=== PATIENT | female | born 1930 | race Caucasian/White ===

== ENCOUNTER 2016-10-07 17:18 | Inpatient (IN) | payer OTHER ==
[~2016-10-07] VITALS: Ht 160 cm; Wt 48.1 kg
--- NOTE | ~2016-10-07 | HC ---
[facility] [place] [address] CONSULTATION Name: EFFIE JENKINS Room #: 311-P ADM IN M.R.#: [id number] Admission: 10/07/16 Attend Phys: Zafar Gillis MD Discharge: Date of : 29 Report #: [id number] THIS REPORT FOR: //name// CC: Kaitlin Gillis MD DATE OF SERVICE: 10/13/2016 REASON FOR CONSULTATION: Right medial calf hematoma/skin necrosis. HISTORY OF PRESENT ILLNESS: This is an 86-year-old female patient who was admitted to [facility] with palpitations, rapid heart rate, and nausea. The patient has a history of atrial fibrillation as well as congestive heart failure, hypertension, COPD, renal disease, and diabetes mellitus. She had been riding her scooter 2 Fridays ago (9 days ago) and ran into a cabinet with her right medial calf. She had some difficulty with bleeding, but has developed a hematoma since. She reports minimal pain associated with this today. PAST MEDICAL AND SURGICAL HISTORY: Significant for diabetes mellitus, hypertension, atrial fibrillation, cardiomyopathy, congestive heart failure, COPD, hypothyroidism, chronic renal insufficiency, and depression. The patient also has obstructive sleep apnea and a remote history of pulmonary embolism. She has undergone multiple back operations, lumbar fusion, left shoulder surgery, appendectomy, and right inguinal hernia repair. HOME MEDICATIONS: Include Lasix, Eliquis (held with last dose on 10/10/2016), diltiazem, Advair, Prevacid, Synthroid, Januvia, gabapentin, lisinopril, carvedilol, aspirin, folic acid, iron, Spiriva, and Mirapex. ALLERGIES: Include Sulfa Drugs, Fosamax , IODINE, LEVAQUIN, and PENICILLIN (PENICILLIN causes a rash). FAMILY HISTORY: Reviewed and noncontributory to this hospitalization. SOCIAL HISTORY: The patient denies any use of tobacco, alcohol, or illicit drugs. She is . REVIEW OF SYSTEMS: As per history of present illness. GENERAL: The patient denies unintentional weight loss. Denies fever or chills. HEENT: Denies changes in taste, vision, hearing, or smell. RESPIRATORY: Denies shortness of breath, has a history of COPD. CARDIOVASCULAR: Denies chest pain currently, has had palpitations. GASTROINTESTINAL: Denies nausea at this time. Denies bright red blood per rectum. GENITOURINARY: Denies dysuria, urgency, increased urinary frequency or [facility] [address] [place] [address] CONSULTATION Name: EFFIE JENKINS Room #: 311-P [facility] IN [facility]#: [id number] Admission: 10/07/16 Attend Phys: Zafar Gillis MD Discharge: Date of : 29 Report #: [id number] hematuria. MUSCULOSKELETAL: Denies myalgia. Complains of mild right medial calf pain, less today than at the time of her admission. NEUROLOGIC: Denies headaches, numbness, or tingling. PSYCHIATRIC: Denies anxiety or suicidal ideation. ENDOCRINE: Denies polydipsia, polyuria, heat or cold intolerance, has a history of diabetes mellitus. HEMATOLOGIC: Denies anemia, has easy bleeding and bruising while on Eliquis. All other review of systems is negative. PHYSICAL EXAMINATION: VITAL SIGNS: Temperature 36.5 degrees Celsius, blood pressure 116/69, pulse 89, respirations 28 to 32. GENERAL: This is an 86-year-old female patient in no acute distress. HEENT: Atraumatic, normocephalic with moist mucosal membranes. Oropharynx is clear. NECK: Supple, no appreciable lymphadenopathy. CHEST: Clear bilaterally. CARDIOVASCULAR: Regular rate and rhythm. ABDOMEN: Soft, nontender, nondistended with normoactive bowel tones. GENITOURINARY: Normal external female genitalia. EXTREMITIES: Her right medial calf shows a 12 cm long x 6 to 7 cm wide area of the right medial calf with skin necrosis and dark bloody drainage. There is no pus, no surrounding erythema or edema. Her leg is warm (normal temperature) and neurovascularly intact. NEUROLOGIC: Cranial nerves 2-12 grossly intact. PSYCHIATRIC: Normal mood and affect. SKIN AND INTEGUMENTARY: No acute inflammatory changes, rashes, or lesions are present other than that noted above. LABORATORY DATA: Most recent CBC is from 10/07/2016 with a white blood cell count of 8.9, hemoglobin 12.6, hematocrit 37.1, and platelets 165. Electrolytes most recently from 10/10/2016 show sodium 142, potassium 4.1, chloride 106, CO2 of 25, BUN 43, creatinine 1.5, glucose 92. Coagulation studies from 10/07/2016 show an INR of 1.8. RADIOLOGIC STUDIES: Chest x-ray from 10/11/2016, shows no significant improvement. There are persistent bilateral perihilar and left lower lung infiltrates and atelectasis, but no large pleural effusions or pneumothorax. IMPRESSION AND PLAN: This is an 86-year-old female patient with the above-listed comorbidities who sustained atraumatic right medial thigh hematoma. She now has overlying skin necrosis, but no evidence for sepsis. Her Eliquis has been held (being given for atrial fibrillation). The patient would benefit from excisional debridement. The [address] [place] [address] CONSULTATION Name: EFFIE JENKINS Room #: 311-P ADM IN M.R.#: [id number] Admission: 10/07/16 Attend Phys: Zafar Gillis MD Discharge: Date of : 29 Report #: [id number] benefits, and expectations of the procedure were discussed in detail with the patient. We will plan for excisional debridement tomorrow. I sincerely appreciate the opportunity to participate in the care of this patient and will leave further recommendations and orders in the electronic medical record as appropriate. <ELECTRONICALLY SIGNED> By: Dario Das MD, FACS 10/14/16 0845 1400 1751 Dario Das MD, FACS /nt
--- NOTE | ~2016-10-07 | HC ---
[facility] [place] [address] CONSULTATION Name: EFFIE JENKINS Room #: 311-P ADM IN M.R.#: [id number] Admission: 10/07/16 Attend Phys: Zafar Gillis MD Discharge: Date of : 29 Report #: [id number] THIS REPORT FOR: //name// CC: Kaitlin Gillis REASON FOR CONSULTATION: Atrial fibrillation. HISTORY OF PRESENT ILLNESS: The patient is an 86-year-old woman with a longstanding known severe nonischemic cardiomyopathy. Her history includes sleep apnea, chronic kidney disease, diabetes and permanent atrial fibrillation. She now presents with a 2-3 day history of nausea and poor oral intake. She denies abdominal pain, fevers or chills. There have been no recent changes to her medicines. She tells me that she is able to keep food down, although she just has had no appetite. In this setting, she felt her heart bleeding rapidly and irregularly. She was seen in the emergency department where she was found to be in atrial fibrillation, which is not a new rhythm abnormality for her. She was placed on intravenous Cardizem and admitted for further evaluation. Her admitting blood work was notable for markedly elevated liver function studies including an ALT of 4700, AST of 3600. She denies orthopnea or paroxysmal nocturnal dyspnea and no history of near-syncope or syncope. MEDICATIONS: Include Lasix 40 mg daily, Eliquis 2.5 mg twice daily, diltiazem CD 180 mg daily, Advair, Prevacid, Synthroid 75 mcg daily, Januvia 50 mg daily, gabapentin 100 mg at bedtime, lisinopril 2.5 mg daily, carvedilol 6.25 mg twice daily, aspirin 81 mg daily, folic acid, iron, Spiriva 1 capsule daily and Mirapex. ALLERGIES: Allergic to SULFA, FOSAMAX, IODINE, LEVAQUIN and PENICILLIN. PAST MEDICAL HISTORY: Medical records have been reviewed and include history of a nonischemic cardiomyopathy with an ejection fraction in the 25%-30% range, permanent atrial fibrillation, right inguinal hernia repair, obstructive sleep apnea, chronic kidney disease, remote pulmonary embolism, multiple prior back operations, lumbar fusion, left shoulder surgery and appendectomy. SOCIAL HISTORY: She has never been a smoker. . FAMILY HISTORY: Father at 81. Mother of pneumonia. REVIEW OF SYSTEMS: All systems negative except as that noted above. PHYSICAL EXAMINATION: GENERAL: This is a pleasant elderly woman, in no distress. VITAL SIGNS: Blood pressure is 98/55 and heart rate is 64 and irregular. She is afebrile, 5 feet 3 inches tall and 119 pounds. HEENT: There are neither xanthelasma, subcutaneous xanthomata, oral mucosal or [facility] [address] [place] [address] CONSULTATION Name: EFFIE JENKINS Room #: 311-P [facility] IN M.R.#: [id number] Admission: 10/07/16 Attend Phys: Zafar Gillis MD Discharge: Date of : 29 Report #: [id number] digital cyanosis or kyphoscoliosis present. CHEST: Clear to auscultation and percussion. CARDIOVASCULAR: An irregularly irregular rhythm with normal S1 and S2. ABDOMEN: Soft and nontender. EXTREMITIES: Without cyanosis, clubbing or edema. Radial pulses are 2+. NEUROLOGICAL: She is alert with a nonfocal exam. LABORATORY DATA: Sodium 141, potassium 4.6 and creatinine 1.4, which is at around her baseline. SGOT of 3612. Bilirubin 1.4. Troponin 0.54. Pro-BNP 51,000. White count 8.9, neutrophils 80% and hemoglobin 12.6. RADIOLOGICAL DATA: Chest x-ray demonstrates cardiomegaly and elevated left hemidiaphragm. EKG, atrial fibrillation, leftward axis and right bundle-branch block. IMPRESSION: 1. Permanent atrial fibrillation with elevated rates likely related to gastrointestinal process. 2. Chronic systolic heart failure. 3. Severe nonischemic cardiomyopathy. 4. Elevated liver function studies. 5. Chronic kidney disease. 6. Sleep apnea. 7. Diabetes type 2. 8. Hypercoagulable condition. RECOMMENDATIONS: 1. Resume oral Cardizem and carvedilol. 2. Continued anticoagulant therapy with apixaban. 3. GI evaluation. I suspect her atrial fibrillation rates her related to mild volume depletion and GI process. Thank you for asking me to participate in her care. <ELECTRONICALLY SIGNED> By: Ethan Hernandez MD, [facility] 10/10/16 1033 0741 0809 Ethan Hernandez MD, FAC /nt
--- NOTE | ~2016-10-07 | S ---
[facility] [place] [address] SURGICAL PATH RPT PROCEDURE Name: EFFIE JENKINS Room #: 311-P ADM IN M.R.#: [id number] Admission: 10/07/16 Date of : 29 Discharge: Report #: [id number] Path Case #: [id number] PATHOLOGY REPORT COLLECTION DATE: 10/14/2016 RECEIVED DATE: 10/14/2016 SUBMITTING PHYS: Dr. Raul Pleitez OTHER PHYS: Dr. Kaitlin Gillis SPECIMEN(S) RECEIVED: A.Right leg hematoma and skin * * * * * * * * * * * * FINAL DIAGNOSIS: Right leg hematoma and skin: - Elements of peripheral blood, consistent with a hematoma. - Non-viable skin showing gangrenous necrosis. (IUV:mgr; d/t: 10/15/16) PATHOLOGIST: Nayeli Olea M.D. REPORT ELECTRONICALLY SIGNED BY: Nayeli Olea M.D. DATE/TIME: 10/15/2016 16:29 * * * * * * * * * * * * GROSS PATHOLOGY: The specimen is received in formalin, labeled "Effie Jenkins-right leg hematoma and skin." Received is a 12.7 x 10.5 x 2.5 cm aggregate of dark red blood coagulum admixed with skin. [employer] Worker sections are submitted cassette A1. (TTL; 10/14/2016) CLINICAL HISTORY: Hematoma right medial calf INITIAL CPT CODE(S): A; 78116 Professional services performed by [facility] at [facility] [address] [place] [address] Technical services performed by [facility] at [address] [place] [id number]. [facility] [address] [place] [address] SURGICAL PATH RPT PROCEDURE Name: EFFIE JENKINS Room #: 311-P ADM IN M.R.#: [id number] Admission: 10/07/16 Date of : 29 Discharge: Report #: [id number] Path Case #: [id number] [address] PHONE: [phone] DIRECTOR: Omi Wolff M.D. * * * END OF REPORT * * *
--- NOTE | ~2016-10-07 | EKG ---
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: GINO : 1930 Requested By: Manuel Palmer Order Number: [id number] MD: Ethan Hernandez Measurements Intervals [employer] Rate: 97 P: ID: QRS: -87 QRSD: 160 T: 75 QT: 370 QTc: 470 Interpretive Statements Atrial fibrillation RBBB and LAFB Compared to ECG 09/16/2016 13:55:20 Left anterior fascicular block now present Right bundle-branch block now present Ventricular premature complex(es) no longer present Electronically Signed On 10-08-2016 9:01:14 OYSTER HARVESTER by Ethan Hernandez [email or web address] <ELECTRONICALLY SIGNED> By: Ethan Hernandez MD, [facility] 10/08/16 0901 1746 1746 Ethan Hernandez MD, [facility] /EPI
--- NOTE | ~2016-10-07 | H ---
[facility] [place] [address] HISTORY AND PHYSICAL Name: EFFIE JENKINS Room #: 311-P ADM IN M.R.#: [id number] Admission: 10/07/16 Attend Phys: Zafar Gillis MD Discharge: Date of : 29 Report #: [id number] THIS REPORT FOR: //name// CC: Kaitlin Gillis DATE OF SERVICE: 10/07/2016 CHIEF COMPLAINT: Palpitations, rapid heart rate, and nausea. HISTORY OF PRESENT ILLNESS: The patient is an 86-year-old female presented to the ER via ambulance with increasing heart rate and palpations. These symptoms started today. She also had some more shortness of air and some nausea. She has a history of prior AFib, congestive heart failure, hypertension, COPD, renal disease, diabetes mellitus. She denies any recent fevers or chills. PAST MEDICAL HISTORY: Includes as above: 1. Diabetes mellitus. 2. Hypertension. 3. AFib. 4. Cardiomyopathy. 5. CHF. 6. COPD. 7. Hypothyroidism. 8. Depression. 9. Recurrent UTIs. 10. Chronic renal insufficiency. 11. Constipation. 12. Prior ulcer. 13. Restless legs. MEDICATIONS: Lasix 40 mg a day, Eliquis 2.5 mg b.i.d., multivitamin daily, diltiazem 180 mg a day, tramadol 50 mg p.r.n., vitamin B12 daily, Advair 100/50 b.i.d., Prevacid 30 mg b.i.d., Xanax 0.25 mg p.r.n., Synthroid 75 mcg a day, Januvia 50 mg a day, gabapentin 100 mg at bedtime, lisinopril 2.5 mg a day, Coreg 6.25 b.i.d., aspirin 81 mg a day, potassium 20 mEq a day, [place] cream p.r.n., folic acid 1 mg daily, iron 325 mg a day, Spiriva 1 cap daily, Mirapex 0.5 mg at bedtime. ALLERGIES: SULFA, FOSAMAX, IODINE, LEVAQUIN, PENICILLIN. SOCIAL HISTORY: Nonsmoker. She does drink alcohol occasionally. No recreational drugs. REVIEW OF SYSTEMS: CONSTITUTIONAL: No fever or chills. [address] [address] HISTORY AND PHYSICAL Name: EFFIE JENKINS Room #: 311-P [facility] IN .R.#: [id number] Admission: 10/07/16 Attend Phys: Zafar Gillis MD Discharge: Date of : 29 Report #: [id number] HEENT: No headaches or visual changes. CHEST: Per above. No cough or sputum production. GASTROINTESTINAL: Per above. No diarrhea. GENITOURINARY: No burning or frequency. EXTREMITIES: No new joint pain. SKIN: No new rashes or wounds. NEUROLOGIC: No new numbness or weakness. PHYSICAL EXAMINATION: VITAL SIGNS: In the ER, blood pressure 175, initial pulse is 154, is now 88, respiratory rate 62 is now 28, and her O2 sat was 97%. GENERAL: She is currently awake and alert, in no acute distress. She is well nourished. Her mucous membranes are moist. NECK: Supple, without adenopathy, thyromegaly, or bruits. CHEST: Shows basilar crackles bilaterally. CARDIOVASCULAR: She currently has an irregular rhythm with a rate in the 80s, although it was in the 150s on presentation. ABDOMEN: Soft, no masses. Bowel sounds are active. EXTREMITIES: Showed no edema. Pulses were intact. NEUROLOGIC: Motor and sensory grossly intact bilaterally. DIAGNOSTIC DATA: EKG showed AFib with RVR. She was at 97 by the time the EKG was performed. There is no ST segment elevation. LABORATORY DATA: Sodium is 138, potassium is 6.7, chloride is 98, bicarbonate is 26, BUN is 36, creatinine is 1.6, glucose is 95, magnesium is 1.8. Total bili is 3.3, AST is 2217. ALT is 1708, alk phos 116. CPK 77, troponin is 0.17, BNP is 51,379, total protein 6.1, albumin 3.2. TSH is pending, INR 1.8. She is not on Coumadin. WBC is 8.9, hemoglobin 12.6, hematocrit 37.1, platelet count 165, 80 segs, 9 lymphs, 9 monos. Chest x-ray shows cardiomegaly, elevated left hemidiaphragm versus hernia. There is some improvement in the basal infiltrates from September of this year. ASSESSMENT: 1. Atrial fibrillation with rapid ventricular response: Rate control improved with IV Cardizem. Cardiology has been consulted. We will monitor the troponin. Dr. Wilson felt she was mildly dehydrated, we will give some fluids to help with that. 2. Elevated liver functions, maybe congestion from her heart failure, although elevated total bilirubin as well concerning for other processes. We will get an abdominal ultrasound and consult GI. Check an iron level and hepatitis panel. 3. Acute kidney injury with chronic kidney disease. 4. Hyperkalemia. She is getting hydrated. We will recheck that. 5. Chronic anemia, receives iron for that. [facility] [address] [place] [address] HISTORY AND PHYSICAL Name: EFFIE JENKINS Room #: 311-P ADM IN M.R.#: [id number] Admission: 10/07/16 Attend Phys: Zafar Gillis MD Discharge: Date of : 29 Report #: [id number] 6. Diabetes mellitus, we will hold her metformin, Januvia due to liver failure 7. Hypothyroidism, continue Synthroid. <ELECTRONICALLY SIGNED> By: Greg Mccann MD 10/14/16 1632 193 20 Greg Mccann MD /nt
--- NOTE | ~2016-10-07 | O ---
[facility] [place] [address] OPERATIVE REPORT Name: EFFIE JENKINS Room #: 311-P ADM IN M.R.#: [id number] Admission: 10/07/16 Attend Phys: Zafar Gillis MD Discharge: Date of : 29 Report #: [id number] THIS REPORT FOR: //name// CC: Kaitlin Gillis DATE OF SERVICE: 10/14/2016 PREOPERATIVE DIAGNOSIS: Hematoma of the soft tissues and necrosis of the overlying skin of the right medial calf comprising the area of 12 cm vertical x 8 cm width. POSTOPERATIVE DIAGNOSIS: Hematoma of the soft tissues and necrosis of the overlying skin of the right medial calf comprising the area of 12 cm vertical x 8 cm width. OPERATIVE PROCEDURE: Debridement and evacuation of hematoma, right lower extremity 8 x 12 cm in greatest dimensions. SURGEON: Raul Pleitez MD. EARLY CHILDHOOD ASSOCIATE: Destinee Barrera MS3. INDICATIONS: An 86-year-old lady that caught the right medial calf of her leg with her power aid transportation device between the kitchen refrigerator and the power rider approximately 1 week ago. She was currently on Eliquis and/or Coumadin for her AFib and previous PE. She developed significant soft tissue hematoma of the medial aspect of the right lower extremity, which requires debridement and evacuation. OPERATIVE PROCEDURE: The patient had thorough discussion of procedure, benefits and risks. She was brought to the operating suite and had satisfactory induction of moderate anesthetic care. After sterile draping of the right lower extremity was performed with Betadine solution, draping was completed, an appropriate timeout was then performed. The 8 x 12 cm blank necrotic skin of the medial aspect of the calf was completely disrupted. The margins had already begun to separate with just manipulation of the necrotic skin. All of this large eschar was excised and all of the underlying hematoma of approximately 100 mL was sent for histologic evaluation. Cleaning of the soft tissues and washing and dry debridement was then performed. When the hematoma had been evacuated, the underlying soft tissue was covered with saline ointment. Xeroform gauze was placed over the wound 4 x 4s followed by wrapping with Kerlix gauze and an Odell wrap was then performed. New blood loss was less than 1 mL. Old blood evacuated was approximately 100 mL. The patient tolerated procedure well with only local anesthetic and moderate anesthetic care. The patient returned [address] [address] OPERATIVE REPORT Name: EFFIE JENKINS Room #: 311-P [facility] IN ..#: [id number] Admission: 10/07/16 Attend Phys: Zafar Gillis MD Discharge: Date of : 29 Report #: [id number] directly to recovery room in stable and satisfactory condition. She will be followed by wound care. <ELECTRONICALLY SIGNED> By: Raul Pleitez MD, FACS 10/15/16 1129 1651 1728 Raul Pleitez MD, ERMELINDA /nt
--- NOTE | ~2016-10-07 | HC ---
[facility] [place] [address] CONSULTATION Name: EFFIE JENKINS Room #: 311-P ADM IN M.R.#: [id number] Admission: 10/07/16 Attend Phys: Zafar Gillis MD Discharge: Date of : 29 Report #: [id number] THIS REPORT FOR: //name// CC: Kaitlin Gillis DATE OF SERVICE: 10/13/2016 REASON FOR CONSULTATION: Traumatic hematoma of right leg. HISTORY OF PRESENT ILLNESS: The patient is a very pleasant 86-year-old woman who was admitted to [facility] through the Emergency Room on 10/07/2016 with atrial fibrillation and rapid ventricular response. The patient has diabetes. She is on Eliquis for her atrial fibrillation. Of note, the patient had accidentally struck her right leg on a freezer door approximately 9 or 10 days ago and Wound Care was consulted at this time due to a hematoma of her right lower leg, which is somewhat painful. During the course of her hospitalization, she has had her medical problems evaluated. At time of admission, she also had some shortness of breath, nausea and dry heaves which have resolved. Wound care was consulted for her hematoma. PAST MEDICAL HISTORY: 1. Atrial fibrillation. 2. Heart failure. 3. Hypertension. 4. COPD. 5. Chronic kidney disease. 6. Diabetes mellitus type 2. 7. Cardiomyopathy. PAST SURGICAL HISTORY: Hysterectomy, bilateral total knee replacement, bladder repair for prolapse, cataract surgery, right inguinal hernia repair, back surgery, trauma of left leg with healed wound. ALLERGIES: SULFA, IODINE, LEVAQUIN AND PENICILLINS. SOCIAL HISTORY: Note the patient's , Lobo Jenkins, is hospitalized now at the same time for venostasis ulceration of his leg and arterial sclerosis. MEDICATIONS: At home include Lasix, Eliquis 2.5 mg p.o. twice daily, multiple vitamins, diltiazem, tramadol, Prevacid, Xanax, Synthroid, Januvia, Neurontin, lisinopril, carvedilol, baby aspirin, potassium, folic acid, iron, Mirapex. REVIEW OF SYSTEMS: Noncontributory. [facility] [address] [place] [address] CONSULTATION Name: EFFIE JENKINS Room #: 311-P [facility] IN [facility].#: [id number] Admission: 10/07/16 Attend Phys: Zafar Gillis MD Discharge: Date of : 29 Report #: [id number] PHYSICAL EXAMINATION: GENERAL: Shows a thin elderly woman who is very lucid, alert, is a good historian. HEENT: Mucous membranes are moist. NECK: Supple. CHEST: Clear. HEART: Shows irregular rhythm. ABDOMEN: Soft. EXTREMITIES: Examination of the extremities shows old healed scars of the left lower extremity with some dark pigment changes. Dorsalis pedis pulse intact on the left. Examination of the right leg shows intact right dorsalis pedis pulse. There is a large approximately 10 cm long x 7 cm wide bulging hematoma of the right medial calf with the appearance of desiccated necrotic skin and underlying hematoma. This was somewhat tender to the touch. Minimal redness around the edges without overt cellulitis. IMPRESSION: Traumatic hematoma of right calf wound with atrial fibrillation, on Eliquis with overlying skin necrosis and underlying hematoma. PLAN: Xeroform dressing and a Kerlix wrap. Consult General Surgery, Dr. Dario Das, for consideration of operative debridement. Once skin and hematoma have been removed creating a concave wound and negative pressure wound therapy, the wound VAC would be optimal. Dr. Das had seen the patient. They will make surgical plan. <ELECTRONICALLY SIGNED> By: Arian Waller MD 10/15/16 1702 1354 1818 Arian Waller MD /nt
[~2016-10-07 17:18] MED LIST: ACCUNEB SO1.25 MG/1; ACCUNEB0.63 MG/3 IH; ADULT LOW DOSE81 MG PO; ADVAIR 100-501 EACH INH; ALBUTEROL INH INH; ALBUTEROL2.5 MG/31 INH; AMBIEN 5 MG TABL5 MG PO; APAP W/CODEINE1 TA2 PO; ASPIR 8181 MG; ASPIR 8181 MG PO; BENTYL 10 MG CA10 MG PO; BENZONATATE200 MG PO; CALCIUM 500 +1 EAC1 PO; CALCIUM 500 +1 EAC5 PO; CALCIUM 600 +1 EAC8 PO; CARDIZEM CD120 MG PO; CARVEDILOL12.5 MG PO; CARVEDILOL25 MG PO; CEFTIN500 MG PO; CLARITIN10 MG PO; COLOZAL PO; COREG PO; COREG25 MG PO; COREG6.25 MG PO; COZAAR 50 MG TA50 M1 PO; COZAAR 50 MG TA50 M2 PO; COZAAR 50 MG TA50 MG PO; DARVOCET-N 1001 EAC1 PO; DEPO-ESTRAD5 MG/1 ML IM; DIABETIC MED; DILTIAZEM 24HR120 M2 PO; DOXYCYCLINE 10100 MG PO; ELIQUIS2.5 MG PO; ENOXAPARIN30 MG/0.1 INJECTION; FLONASE 0.05%50 MCG NASAL; FOLIC ACID 1 MG1 MG PO; FOLIC ACID1 MG PO; GABAPENTIN 100100 MG PO; HYDROCODON-ACE1 EAC1 PO; HYDROCODONE-APA1 TA1 PO; IRON325 PO; JANUVIA25 MG PO; JANUVIA50 MG PO; LANSOPRAZOLE30 MG PO; LASIX 20 MG TAB20 MG PO; LASIX 40 MG TAB40 M2 PO; LEVOTHYROXIN0.075 MG PO; LEVOTHYROXIN0.088 MG PO; LEVOXYL50 MCG PO; LEVOXYL75 MCG PO; LEXAPRO20 MG PO; LISINOPRIL2.5 M1 PO; LISINOPRIL2.5 MG PO; LISINOPRIL5 MG PO; MAG-OXIDE400 MG PO; MAGNESIUM OXID400 MG PO; MAGNESIUM100 MG PO; MAGNESIUM250 M1 PO; MAGNESIUM500 MG PO; MILLIPRED DP5 M1 PO; MIRAPEX0.25 MG PO; MIRAPEX0.5 MG PO; MOBIC15 MG PO; MOM PO; MULTIVITAMINS PO; MYRBETRIQ25 MG PO; NASACORT; NASACORT AQ16.5 GM NASAL; NASACORT10.8 ML NS; NEXIUM40 MG PO; NORCO 5-325 TA1 EACH PO; NORCO 7.5-3251 EACH PO; NOVOPEN 31 EACH; ONDANSETRON2 MG/1 ML PO; OPIUM; OPIUM TINC10 MG/1 M1 PO; OPIUM10 MG/1 ML PO; PACERONE 200 M200 M1 PO; PERIACTIN PO; POTASSIUM20 PO; PREDNISONE 20 M20 MG PO; PREVACID 30MG C30 M1 PO; PREVACID PO; PREVACID30 MG PO; REQUIP 1 MG TABL1 M1 PO; SPIRIVA; SPIRIVA INH; SYMBICORT160 MCG/4. INH; TOVIAZ8 MG PO; TRADJENTA5 MG PO; TRAMADOL 50 MG50 MG PO; TRIAMCINOLONE A80 G2 TOP; TYLENOL325 MG PO; UNICOMPLEX M TA1 TA1 PO; VESICARE10 M1 PO; VICODIN 5-5001 EACH PO; VITAMIN B-12100 MC1 PO; VITAMIN B-12100 MCG PO; VITAMIN B-121000 MCG PO; VITAMIN B-12500 MCG PO; VITAMIN B-150 MG PO; VITAMIN B-6200 M1 PO; VITAMIN B3 PO; VITAMIN D400 UNI1 PO; XANAX 0.25 MG0.25 MG PO; [UNRECOGNIZED DRUG - OTHER] PO
[2016-10-07 17:21] VITALS: BP 100/75
[2016-10-07 17:49] LABS: ABSOLUTE NEUTROPHILS 7.2 thou/uL (1.4-8.2); BASOPHILS 0.6 % (0.0-2.0); HEMATOCRIT 37.1 % (37.0-47.0); HEMOGLOBIN 12.6 gm/dL (12.0-15.0); LYMPHOCYTES 9.4 % (24.0-44.0); MCH 28.2 pg (26.0-34.0); MCHC 33.9 % (28.0-37.0); MCV 83.2 fL (80.0-100.0); MONOCYTES 9.2 % (1.0-8.0); PLATELET COUNT 165 thou/uL (150-400); POLYS 80.8 % (36.0-66.0); RBC 4.46 mil/uL (4.20-5.00); RDW 16.9 % (10.5-14.5); WBC 8.9 thou/uL (4.0-11.0)
[2016-10-07 17:54] LABS: MANUAL DIFF NO
[2016-10-07 18:00] LABS: CALCIUM 9.5 mg/dL (8.5-10.1); CREATININE 1.6 mg/dL (0.6-1.3)
[2016-10-07 18:02] LABS: APTT 37.4 Seconds (24.5-32.8); INR 1.8; PROTIME 18.4 Seconds (9.3-11.4)
[2016-10-07 18:04] LABS: POTASSIUM 6.7 mmol/L (3.5-5.1)
[2016-10-07 18:14] LABS: TOTAL BILIRUBIN 3.3 mg/dL (<0.1-1.0)
[2016-10-07 18:15] LABS: ALBUMIN 3.2 g/dL (3.4-5.0); MAGNESIUM 1.8 mg/dL (1.8-2.4); TOTAL PROTEIN 6.1 g/dL (6.4-8.2); TROPONIN-I 0.17 ng/mL (<0.04-0.07)
[2016-10-07 20:07] VITALS: BP 90/48
[2016-10-07 20:15] VITALS: BP 104/53
[2016-10-07 20:45] VITALS: BP 85/46
[2016-10-07 21:04] LABS: CALCIUM 8.3 mg/dL (8.5-10.1); CREATININE 1.6 mg/dL (0.6-1.3)
[2016-10-07 21:05] LABS: POTASSIUM 5.6 mmol/L (3.5-5.1)
[2016-10-07 21:35] VITALS: BP 89/41
[2016-10-07 23:45] VITALS: BP 80/45
[2016-10-08] VITALS (8 sets, daily range): BP systolic 80–99; BP diastolic 43–57
[2016-10-08 00:10] LABS: % SATURATION 22 % (15-55); IRON 43 ug/dL (27-139); TIBC 192 ug/dL (250-450); UIBC 149 ug/dL (118-369)
[2016-10-08 06:31] LABS: ALBUMIN 2.4 g/dL (3.4-5.0); CREATININE 1.4 mg/dL (0.6-1.3); TOTAL BILIRUBIN 1.4 mg/dL (<0.1-1.0); TOTAL PROTEIN 4.6 g/dL (6.4-8.2)
[2016-10-08 06:32] LABS: POTASSIUM 4.6 mmol/L (3.5-5.1)
[2016-10-08 07:06] LABS: HEPATITIS C VIRUS AB 0.1 (0.0-0.9)
[2016-10-08 08:02] LABS: AMYLASE 46 U/L (25-115)
[2016-10-09 04:20] VITALS: BP 88/45
[2016-10-09 06:45] LABS: ALBUMIN 2.3 g/dL (3.4-5.0); DIRECT BILIRUBIN 0.7 mg/dL (<0.1-0.3); TOTAL BILIRUBIN 1.2 mg/dL (<0.1-1.0); TOTAL PROTEIN 4.4 g/dL (6.4-8.2)
[2016-10-09 08:37] VITALS: BP 89/53
[2016-10-09 13:21] VITALS: BP 76/38
[2016-10-09 15:41] VITALS: BP 72/37
[2016-10-09 20:33] VITALS: BP 69/37
[2016-10-09 20:35] VITALS: BP 70/38
[2016-10-09 21:08] LABS: HEP B SURFACE Ab(ANTI-HBS Non Reactive (())
[2016-10-10] VITALS: BP 78/39
[2016-10-10 06:36] LABS: CALCIUM 7.6 mg/dL (8.5-10.1); CREATININE 1.5 mg/dL (0.6-1.3); POTASSIUM 4.1 mmol/L (3.5-5.1)
[2016-10-10 07:40] VITALS: BP 82/46
[2016-10-10 11:55] VITALS: BP 95/55
[2016-10-10 15:35] LABS: ALBUMIN 2.4 g/dL (3.4-5.0); DIRECT BILIRUBIN 0.7 mg/dL (<0.1-0.3); TOTAL BILIRUBIN 1.1 mg/dL (<0.1-1.0); TOTAL PROTEIN 4.8 g/dL (6.4-8.2)
[2016-10-10 16:20] VITALS: BP 93/52
[2016-10-10 21:35] VITALS: BP 98/55
[2016-10-11 04:35] VITALS: BP 93/53
[2016-10-11 07:17] LABS: ALBUMIN 2.3 g/dL (3.4-5.0); DIRECT BILIRUBIN 0.6 mg/dL (<0.1-0.3); TOTAL BILIRUBIN 1.2 mg/dL (<0.1-1.0); TOTAL PROTEIN 4.3 g/dL (6.4-8.2)
[2016-10-11 12:50] VITALS: BP 100/48
[2016-10-11 17:40] VITALS: BP 105/58
[2016-10-11 21:45] VITALS: BP 103/71
[2016-10-12 04:36] LABS: ALBUMIN 2.3 g/dL (3.4-5.0); DIRECT BILIRUBIN 0.5 mg/dL (<0.1-0.3); TOTAL BILIRUBIN 1.1 mg/dL (<0.1-1.0); TOTAL PROTEIN 4.8 g/dL (6.4-8.2)
[2016-10-12 05:25] VITALS: BP 101/66
[2016-10-12 07:15] VITALS: BP 123/65
[2016-10-12 12:10] VITALS: BP 112/66
[2016-10-12 16:00] VITALS: BP 98/54
[2016-10-13 08:00] VITALS: BP 111/69
[2016-10-13 14:52] LABS: HEMATOCRIT 37.8 % (37.0-47.0); HEMOGLOBIN 12.4 gm/dL (12.0-15.0); MCH 27.8 pg (26.0-34.0); MCHC 32.7 % (28.0-37.0); MCV 85.1 fL (80.0-100.0); PLATELET COUNT 252 thou/uL (150-400); RBC 4.45 mil/uL (4.20-5.00); RDW 18.4 % (10.5-14.5); WBC 7.8 thou/uL (4.0-11.0)
[2016-10-13 14:54] LABS: MANUAL DIFF YES
[2016-10-13 15:15] LABS: ALBUMIN 2.5 g/dL (3.4-5.0); CALCIUM 8.3 mg/dL (8.5-10.1); CREATININE 0.9 mg/dL (0.6-1.3); POTASSIUM 4.5 mmol/L (3.5-5.1); TOTAL BILIRUBIN 1.1 mg/dL (<0.1-1.0); TOTAL PROTEIN 5.4 g/dL (6.4-8.2)
[2016-10-13 15:36] LABS: ABSOLUTE NEUTROPHILS 5.6 thou/uL (1.4-8.2); ANISOCYTOSIS 1+; TOTAL CELL COUNT 100
[2016-10-13 17:40] VITALS: BP 93/76
[2016-10-13 20:00] VITALS: BP 100/61
[2016-10-14 04:20] VITALS: BP 101/54
[2016-10-14 08:12] VITALS: BP 110/70
[2016-10-14 10:06] VITALS: BP 102/65
[2016-10-14 10:21] LABS: INR 1.4; PROTIME 14.9 Seconds (9.3-11.4)
[2016-10-14 14:25] VITALS: BP 109/66
[2016-10-14 17:17] VITALS: BP 111/70
[2016-10-14 20:32] VITALS: BP 94/54
[2016-10-15 07:03] LABS: ALBUMIN 2.5 g/dL (3.4-5.0); DIRECT BILIRUBIN 0.4 mg/dL (<0.1-0.3); TOTAL BILIRUBIN 1.1 mg/dL (<0.1-1.0); TOTAL PROTEIN 5.2 g/dL (6.4-8.2)
[2016-10-15 08:00] VITALS: BP 107/67
[2016-10-15 12:00] VITALS: BP 95/69
[2016-10-15] MEDS ORDERED: VITAMIN B-12500 MCG PO (12:13)
[2016-10-15] MEDS ORDERED: MULTIVITAMINS PO (12:13)
[2016-10-15] MEDS ORDERED: FOLIC ACID 1 MG1 MG PO (12:13)
[2016-10-15] MEDS ORDERED: CARDIZEM CD 18180 M3 PO (12:13)
[2016-10-15] MEDS ORDERED: JANUVIA50 MG PO (12:13)
[2016-10-15] MEDS ORDERED: ALPRAZOLAM 0.0.25 M1 PO (12:40)
[2016-10-15] MEDS ORDERED: TRAMADOL 50 MG50 MG PO (12:40)
[2016-10-15 16:00] VITALS: BP 94/69
== END 2016-10-15 17:23 | DRG 853 ==
LOC: ER 17:18 → EROBS 19:12 → 3N 19:12
PROVIDERS: Emergency Medicine; Family Medicine; Hospitalist; Internal Medicine; Internal Medicine Gastroenterology; Nurse Practitioner Adult Health; Nurse Practitioner Family; Specialist; Surgery
PROC: 0JBN0ZZ Excision of Right Lower Leg Subcutaneous Tissue and Fascia, Open Approach (ICD-10-PCS; principal; 2016-10-14)
DX: A41.9 Sepsis, unspecified organism (principal); K72.00 Acute and subacute hepatic failure without coma; J15.6 Pneumonia due to other Gram-negative bacteria; N17.9 Acute kidney failure, unspecified; D68.59 Other primary thrombophilia; I13.0 Hypertensive heart and chronic kidney disease with heart failure and stage 1 through stage 4 chronic kidney disease, or unspecified chronic kidney disease; I50.22 Chronic systolic (congestive) heart failure; I42.0 Dilated cardiomyopathy; N39.0 Urinary tract infection, site not specified; K72.90 Hepatic failure, unspecified without coma; Z96.653 Presence of artificial knee joint, bilateral; E03.9 Hypothyroidism, unspecified; F32.9 Major depressive disorder, single episode, unspecified; J44.9 Chronic obstructive pulmonary disease, unspecified; G25.81 Restless legs syndrome; K59.00 Constipation, unspecified; E87.5 Hyperkalemia; I48.2 Chronic atrial fibrillation; G47.33 Obstructive sleep apnea (adult) (pediatric); S80.12XA Contusion of left lower leg, initial encounter; F03.90 Unspecified dementia, unspecified severity, without behavioral disturbance, psychotic disturbance, mood disturbance, and anxiety; E11.22 Type 2 diabetes mellitus with diabetic chronic kidney disease; N18.2 Chronic kidney disease, stage 2 (mild); D63.8 Anemia in other chronic diseases classified elsewhere; E86.0 Dehydration; S89.90XA Unspecified injury of unspecified lower leg, initial encounter; X58.XXXA Exposure to other specified factors, initial encounter; Z88.0 Allergy status to penicillin; Z88.1 Allergy status to other antibiotic agents; Z90.710 Acquired absence of both cervix and uterus; Z98.42 Cataract extraction status, left eye; Z98.41 Cataract extraction status, right eye; Z88.2 Allergy status to sulfonamides; Z79.82 Long term (current) use of aspirin; Z79.899 Other long term (current) drug therapy; Z90.49 Acquired absence of other specified parts of digestive tract; Z91.041 Radiographic dye allergy status; Z86.711 Personal history of pulmonary embolism; Z98.890 Other specified postprocedural states; Y93.89 Activity, other specified; Y92.89 Other specified places as the place of occurrence of the external cause; Y99.8 Other external cause status
CPT/HCPCS: 10096; 50010; 50101; 50386; 57091; 62110; 62850; 70005

== ENCOUNTER → 2016-10-22 | Outpatient (CLI) | payer OTHER ==
[~2016-10-22] MED LIST changes: +ALPRAZOLAM 0.0.25 M1 PO; +CARDIZEM CD 18180 M3 PO
== END ==
LOC: HYPER 06:56
DX: E11.622 Type 2 diabetes mellitus with other skin ulcer (principal); L97.211 Non-pressure chronic ulcer of right calf limited to breakdown of skin; I48.91 Unspecified atrial fibrillation; J44.9 Chronic obstructive pulmonary disease, unspecified; E11.22 Type 2 diabetes mellitus with diabetic chronic kidney disease; N18.3 Chronic kidney disease, stage 3 (moderate); I50.9 Heart failure, unspecified; Z90.710 Acquired absence of both cervix and uterus

== ENCOUNTER → 2016-10-29 | Outpatient (CLI) | payer OTHER | LOC: HYPER 06:52 | DX: T81.89XD Other complications of procedures, not elsewhere classified, subsequent encounter (principal); E11.622 Type 2 diabetes mellitus with other skin ulcer; E11.22 Type 2 diabetes mellitus with diabetic chronic kidney disease; N18.3 Chronic kidney disease, stage 3 (moderate); I48.91 Unspecified atrial fibrillation; J44.9 Chronic obstructive pulmonary disease, unspecified; L97.821 Non-pressure chronic ulcer of other part of left lower leg limited to breakdown of skin; Z90.710 Acquired absence of both cervix and uterus; Y83.8 Other surgical procedures as the cause of abnormal reaction of the patient, or of later complication, without mention of misadventure at the time of the procedure ==

== ENCOUNTER → 2016-12-31 | Outpatient (CLI) | payer OTHER | LOC: HYPER 07:07 | DX: T81.89XD Other complications of procedures, not elsewhere classified, subsequent encounter (principal); S81.801D Unspecified open wound, right lower leg, subsequent encounter; L89.101 Pressure ulcer of unspecified part of back, stage 1; E11.22 Type 2 diabetes mellitus with diabetic chronic kidney disease; I13.0 Hypertensive heart and chronic kidney disease with heart failure and stage 1 through stage 4 chronic kidney disease, or unspecified chronic kidney disease; N18.3 Chronic kidney disease, stage 3 (moderate); I50.9 Heart failure, unspecified; I48.91 Unspecified atrial fibrillation; J44.9 Chronic obstructive pulmonary disease, unspecified; Y83.8 Other surgical procedures as the cause of abnormal reaction of the patient, or of later complication, without mention of misadventure at the time of the procedure ==

== ENCOUNTER → 2017-01-07 | Outpatient (CLI) | payer OTHER | LOC: HYPER 07:01 | DX: T81.89XA Other complications of procedures, not elsewhere classified, initial encounter (principal); S81.801A Unspecified open wound, right lower leg, initial encounter; S80.11XA Contusion of right lower leg, initial encounter; E11.22 Type 2 diabetes mellitus with diabetic chronic kidney disease; N18.3 Chronic kidney disease, stage 3 (moderate); E11.69 Type 2 diabetes mellitus with other specified complication; I48.91 Unspecified atrial fibrillation; I50.9 Heart failure, unspecified; J44.9 Chronic obstructive pulmonary disease, unspecified; Y83.8 Other surgical procedures as the cause of abnormal reaction of the patient, or of later complication, without mention of misadventure at the time of the procedure ==

== ENCOUNTER → 2017-01-14 | Outpatient (CLI) | payer OTHER | LOC: HYPER 07:07 | DX: T81.89XA Other complications of procedures, not elsewhere classified, initial encounter (principal); S81.801D Unspecified open wound, right lower leg, subsequent encounter; E11.69 Type 2 diabetes mellitus with other specified complication; Z48.817 Encounter for surgical aftercare following surgery on the skin and subcutaneous tissue; E11.22 Type 2 diabetes mellitus with diabetic chronic kidney disease; N18.3 Chronic kidney disease, stage 3 (moderate); I50.9 Heart failure, unspecified; I48.91 Unspecified atrial fibrillation; J44.9 Chronic obstructive pulmonary disease, unspecified; Y83.8 Other surgical procedures as the cause of abnormal reaction of the patient, or of later complication, without mention of misadventure at the time of the procedure ==

== ENCOUNTER → 2017-01-28 | Outpatient (CLI) | payer OTHER | LOC: HYPER 07:14 | DX: T81.89XD Other complications of procedures, not elsewhere classified, subsequent encounter (principal); E11.69 Type 2 diabetes mellitus with other specified complication; Z48.817 Encounter for surgical aftercare following surgery on the skin and subcutaneous tissue; I48.91 Unspecified atrial fibrillation; E11.22 Type 2 diabetes mellitus with diabetic chronic kidney disease; N18.9 Chronic kidney disease, unspecified; I50.20 Unspecified systolic (congestive) heart failure; J44.9 Chronic obstructive pulmonary disease, unspecified; Y83.8 Other surgical procedures as the cause of abnormal reaction of the patient, or of later complication, without mention of misadventure at the time of the procedure ==

== ENCOUNTER → 2017-02-04 | Outpatient (CLI) | payer OTHER | LOC: HYPER 07:10 | DX: T81.89XD Other complications of procedures, not elsewhere classified, subsequent encounter (principal); S81.801D Unspecified open wound, right lower leg, subsequent encounter; I48.91 Unspecified atrial fibrillation; E11.22 Type 2 diabetes mellitus with diabetic chronic kidney disease; N18.3 Chronic kidney disease, stage 3 (moderate); F15.90 Other stimulant use, unspecified, uncomplicated; J44.9 Chronic obstructive pulmonary disease, unspecified; Z48.817 Encounter for surgical aftercare following surgery on the skin and subcutaneous tissue; Y83.8 Other surgical procedures as the cause of abnormal reaction of the patient, or of later complication, without mention of misadventure at the time of the procedure ==

== ENCOUNTER → 2017-02-11 | Outpatient (CLI) | payer OTHER | LOC: HYPER 07:06 | DX: T81.89XA Other complications of procedures, not elsewhere classified, initial encounter (principal); S81.801D Unspecified open wound, right lower leg, subsequent encounter; E11.22 Type 2 diabetes mellitus with diabetic chronic kidney disease; N18.3 Chronic kidney disease, stage 3 (moderate); I48.91 Unspecified atrial fibrillation; I50.9 Heart failure, unspecified; J44.9 Chronic obstructive pulmonary disease, unspecified; F15.90 Other stimulant use, unspecified, uncomplicated; Z48.817 Encounter for surgical aftercare following surgery on the skin and subcutaneous tissue; Y83.8 Other surgical procedures as the cause of abnormal reaction of the patient, or of later complication, without mention of misadventure at the time of the procedure ==

== ENCOUNTER → 2017-02-18 | Outpatient (CLI) | payer OTHER | LOC: HYPER 06:54 | DX: T81.89XA Other complications of procedures, not elsewhere classified, initial encounter (principal); S81.801D Unspecified open wound, right lower leg, subsequent encounter; E11.22 Type 2 diabetes mellitus with diabetic chronic kidney disease; N18.3 Chronic kidney disease, stage 3 (moderate); I50.9 Heart failure, unspecified; I48.91 Unspecified atrial fibrillation; J44.9 Chronic obstructive pulmonary disease, unspecified; Z48.817 Encounter for surgical aftercare following surgery on the skin and subcutaneous tissue; W22.8XXD Striking against or struck by other objects, subsequent encounter; Y83.8 Other surgical procedures as the cause of abnormal reaction of the patient, or of later complication, without mention of misadventure at the time of the procedure ==

== ENCOUNTER → 2017-03-04 | Outpatient (CLI) | payer OTHER | LOC: HYPER 07:39 | DX: T81.89XD Other complications of procedures, not elsewhere classified, subsequent encounter (principal); E11.22 Type 2 diabetes mellitus with diabetic chronic kidney disease; N18.3 Chronic kidney disease, stage 3 (moderate); I48.91 Unspecified atrial fibrillation; J44.9 Chronic obstructive pulmonary disease, unspecified; Y83.8 Other surgical procedures as the cause of abnormal reaction of the patient, or of later complication, without mention of misadventure at the time of the procedure ==

== ENCOUNTER → 2017-03-18 | Outpatient (CLI) | payer OTHER | LOC: HYPER 07:17 | DX: T81.89XD Other complications of procedures, not elsewhere classified, subsequent encounter (principal); E11.22 Type 2 diabetes mellitus with diabetic chronic kidney disease; N18.3 Chronic kidney disease, stage 3 (moderate); I50.9 Heart failure, unspecified; J44.9 Chronic obstructive pulmonary disease, unspecified; I48.91 Unspecified atrial fibrillation; Z48.817 Encounter for surgical aftercare following surgery on the skin and subcutaneous tissue; Y83.8 Other surgical procedures as the cause of abnormal reaction of the patient, or of later complication, without mention of misadventure at the time of the procedure ==

== ENCOUNTER → 2017-04-01 | Outpatient (CLI) | payer OTHER | LOC: HYPER 07:08 | DX: T81.89XD Other complications of procedures, not elsewhere classified, subsequent encounter (principal); S81.801D Unspecified open wound, right lower leg, subsequent encounter; E11.22 Type 2 diabetes mellitus with diabetic chronic kidney disease; N18.3 Chronic kidney disease, stage 3 (moderate); I48.91 Unspecified atrial fibrillation; I50.9 Heart failure, unspecified; J44.9 Chronic obstructive pulmonary disease, unspecified; Z48.817 Encounter for surgical aftercare following surgery on the skin and subcutaneous tissue; Y83.8 Other surgical procedures as the cause of abnormal reaction of the patient, or of later complication, without mention of misadventure at the time of the procedure ==

== ENCOUNTER → 2017-04-14 | Outpatient (CLI) | payer OTHER ==
[~2017-04-14] VITALS: Ht 160 cm; Wt 57.2 kg
[~2017-04-14] MED LIST changes: +ACETAMINOPHEN-1 EAC1 PO; +JANUVIA 50 MG T50 M1 PO
[2017-04-14 12:56] VITALS: BP 113/56
== END | disposition home or self-care (01) ==
LOC: PAIN 06:45
DX: M19.012 Primary osteoarthritis, left shoulder (principal); M19.011 Primary osteoarthritis, right shoulder

== ENCOUNTER → 2017-04-15 | Outpatient (CLI) | payer OTHER | LOC: HYPER 07:15 | DX: T81.89XD Other complications of procedures, not elsewhere classified, subsequent encounter (principal); I48.91 Unspecified atrial fibrillation; E11.22 Type 2 diabetes mellitus with diabetic chronic kidney disease; N18.3 Chronic kidney disease, stage 3 (moderate); I50.9 Heart failure, unspecified; J44.9 Chronic obstructive pulmonary disease, unspecified; Z90.710 Acquired absence of both cervix and uterus; Y83.8 Other surgical procedures as the cause of abnormal reaction of the patient, or of later complication, without mention of misadventure at the time of the procedure ==

== ENCOUNTER → 2017-05-06 | Outpatient (CLI) | payer OTHER | LOC: HYPER 07:01 | DX: T81.89XD Other complications of procedures, not elsewhere classified, subsequent encounter (principal); E11.22 Type 2 diabetes mellitus with diabetic chronic kidney disease; N18.3 Chronic kidney disease, stage 3 (moderate); I50.9 Heart failure, unspecified; J44.9 Chronic obstructive pulmonary disease, unspecified; I48.91 Unspecified atrial fibrillation; Z90.710 Acquired absence of both cervix and uterus; Y83.8 Other surgical procedures as the cause of abnormal reaction of the patient, or of later complication, without mention of misadventure at the time of the procedure ==

== ENCOUNTER 2017-10-29 07:45 | Inpatient (IN) | payer OTHER ==
[~2017-10-29] VITALS: Ht 160 cm; Wt 60.8 kg
--- NOTE | ~2017-10-29 | EKG ---
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 : 1930 Requested By: Rodriguez Sood Order Number: [id number] MD: Ethan Hernandez Measurements Intervals [place] Rate: 83 P: MT: QRS: -82 QRSD: 158 T: 93 QT: 462 QTc: 543 Interpretive Statements Atrial fibrillation Ventricular premature complex RBBB and LAFB LVH with secondary repolarization abnormality Compared to ECG 10/07/2016 17:46:06 Ventricular premature complex(es) now present Electronically Signed On 10-29-2017 16:03:15 ASSISTANT CHIEF NURSING OFFICER by Ethan Hernandez [email or web address] <ELECTRONICALLY SIGNED> By: Ethan Hernandez MD, [facility] 10/29/17 1603 08 0800 Ethan Hernandez MD, [facility] /EPI
--- NOTE | ~2017-10-29 | EKG ---
[address] [place] [address] ELECTROCARDIOGRAM REPORT Name: EFFIE JENKINS Room #: 429-P ADM IN M.R.#: [id number] Admission: 10/29/17 Attend Phys: Zafar Gillis MD Discharge: Date of : 29 Report #: [id number] THIS REPORT FOR: //name// [facility] Test Date: 2017-10-30 Test Time: 07:59:20 Pat Name: EFFIE JENKINS Department: Room: 429 Gender: F Chemical Dependency Counselor: LUC : 1930 Requested By: Zafar Gillis Order Number: [id number] MD: Ethan Hernandez Measurements Intervals [place] Rate: 134 P: RI: QRS: -81 QRSD: 148 T: 93 QT: 341 QTc: 509 Interpretive Statements Atrial fibrillation Ventricular premature complex RBBB and LAFB Compared to ECG 10/29/2017 08:00:44 No significant changes Electronically Signed On 10-30-2017 8:49:00 DIVISION MERCHANDISE MANAGER by Ethan Hernandez [email or web address] <ELECTRONICALLY SIGNED> By: Ethan Hernandez MD, [facility] 10/30/17 [phone] 0759 Ethan Hernandez MD, [facility] /EPI
--- NOTE | ~2017-10-29 | 2DMMODE ---
[facility] [address] [place] [address] 2 D/M-MODE ECHOCARDIOGRAM Name: EFFIE JENKINS Room #: 170-6 ADM IN .R.#: [id number] Admission: 10/29/17 Attend Phys: Zafar Gillis MD Discharge: Date of : 29 Date of Service: 10/29/17 1422 Report #: [id number] THIS REPORT FOR: //name// APPROVED REPORT Study performed: 10/29/2017 12:38:27 EXAM: Comprehensive 2D, Doppler, and color-flow Echocardiogram Patient Location: ER Room #: 6 Status: routine BSA: 1.64 HR: 78 bpm BP: 132/59 mmHg Rhythm: Irregular Other Information Study Quality: Good Indications Non-ischemic cardiomyopathy. CHF, HTN, Afib. COPD. 2D Dimensions RVDd: 41.57 mm LVEF(%): 23.05 (>50%) IVSd: 11.86 (7-11mm) LVOT Diam: 22.82 (18-24mm) LVDd: 61.71 mm PWd: 10.52 (7-11mm) LVDs: 55.04 (25-40mm) Aortic Root: 35.02 mm Malik's LVEF: 23.05 % Volumes Left Atrial Volume (Systole) Single Plane 4CH: 107.26 mL Single Plane 2CH: 139.42 mL LA ESV Index: 83.00 mL/m2 Aortic Valve AoV Peak Colt.: 1.60 m/s AO Peak Gr.: 11.85 mmHg LVOT Max P.82 mmHg LVOT Max V: 0.67 m/s EPHRAIM Vmax: 1.72 cm2 Mitral Valve E/A Ratio: 2.4 MV Decel. Time: 134.35 ms [facility] [address] [place] [address] 2 D/M-MODE ECHOCARDIOGRAM Name: EFFIE JENKINS Room #: 170-6 ADM IN M.R.#: [id number] Admission: 10/29/17 Attend Phys: Zafar Gillis MD Discharge: Date of : 29 Date of Service: 10/29/17 1422 Report #: [id number] Max Colt.: 1.72 m/s MV A Colt.: 0.71 m/s MV PHT: 38.96 ms IVRT: 69.20 ms Pulmonary Valve PV Peak Colt.: 0.66 m/s PV Peak Gr.: 1.78 mmHg Tricuspid Valve TR Peak Colt.: 3.78 m/s RAP Estimate: 10.00 mmHg TR Peak Gr.: 57.27 mmHg PA Pressure: 67.00 mmHg Left Ventricle Left ventricle is mild to moderately dilated. There is normal left ventricular wall thickness. Left ventricular systolic function is severely decreased. LVEF is 20-25%. Severe diastolic dysfunction is present (restrictive filling). Right Ventricle Right ventricle is mildly dilated. Right ventricle is mildly hypokinetic. Atria Left atrium is severely dilated. Right atrium is mildly dilated. Aortic Valve Aortic valve is moderately calcified. Mild aortic regurgitation. Mild aortic stenosis. EPHRAIM by continuity equation is 1.7cm2. Mitral Valve Mitral valve leaflets are moderately thickened. Moderate mitral annular calcification. Moderate to severe mitral regurgitation No evidence of mitral valve stenosis. Tricuspid Valve The tricuspid valve is normal in structure. Mild to moderate tricuspid regurgitation. Estimated PAP is 65-70mmHg. Pulmonic Valve The pulmonary valve is normal in structure. Mild pulmonic regurgitation. Great Vessels The aortic root is normal in size. Ascending [place] [address] 2 D/M-MODE ECHOCARDIOGRAM Name: EFFIE JENKINS Room #: 170-6 ADM IN M.R.#: [id number] Admission: 10/29/17 Attend Phys: Zafar Gillis MD Discharge: Date of : 29 Date of Service: 10/29/17 1422 Report #: [id number] visualized. IVC is normal in size and collapses <50% with inspiration. Pericardium There is no pericardial effusion. <Conclusion> Left ventricle is mild to moderately dilated. Left ventricular systolic function is severely decreased. Right ventricle is mildly dilated. Right ventricle is mildly hypokinetic. Left atrium is severely dilated. Right atrium is mildly dilated. Aortic valve is moderately calcified. Mild aortic regurgitation. Mild aortic stenosis. EPHRAIM by continuity equation is 1.7cm2. Mitral valve leaflets are moderately thickened. Moderate mitral annular calcification. Moderate to severe mitral regurgitation The tricuspid valve is normal in structure. Mild to moderate tricuspid regurgitation. Estimated PAP is 65-70mmHg. The pulmonary valve is normal in structure. Mild pulmonic regurgitation. There is no pericardial effusion. <ELECTRONICALLY SIGNED> By: Yang Moura MD 10/29/17 1422 142 142 Yang Moura MD /INF
[2017-10-29 07:47] VITALS: BP 132/59
[2017-10-29] MEDS ORDERED: CARDIZEM CD180 MG PO (08:02)
[2017-10-29 08:08] LABS: HEMATOCRIT 39.9 % (37.0-47.0); HEMOGLOBIN 13.5 gm/dL (12.0-15.0); MCH 30.2 pg (26.0-34.0); MCV 89.1 fL (80.0-100.0); RBC 4.48 mil/uL (4.20-5.00); RDW 14.7 % (10.5-14.5); WBC 10.4 thou/uL (4.0-11.0)
[2017-10-29 08:22] LABS: APTT 36.4 Seconds (24.5-32.8); INR 1.4
[2017-10-29 08:23] LABS: CALCIUM 8.9 mg/dL (8.5-10.1); CREATININE 1.5 mg/dL (0.6-1.0)
[2017-10-29] MEDS ORDERED: REMERON15 MG PO (08:23)
[2017-10-29] MEDS ORDERED: TRAZODONE HCL50 MG PO (08:24)
[2017-10-29] MEDS ORDERED: BENADRYL25 MG PO (08:25)
[2017-10-29] MEDS ORDERED: ADVAIR HFA 230M12 GM INH (08:30)
[2017-10-29 08:31] LABS: ALBUMIN 3.4 g/dL (3.4-5.0); TOTAL BILIRUBIN 1.2 mg/dL (<0.1-1.0); TOTAL PROTEIN 6.3 g/dL (6.4-8.2); TROPONIN-I 0.11 ng/mL (<0.06)
[2017-10-29] MEDS ORDERED: EPIPEN0.3 MG/0.1 IM (08:31)
[2017-10-29] MEDS ORDERED: MIRALAX17 GM PO (08:32)
[2017-10-29] MEDS ORDERED: ONDANSETRON HCL4 M2 PO (08:32)
[2017-10-29 08:44] LABS: URINE BILIRUBIN NEGATIVE (Negative); URINE BLOOD TRACE (Negative); URINE CLARITY CLEAR; URINE COLOR YELLOW; URINE GLUCOSE-RANDOM* NEGATIVE (Negative); URINE KETONES NEGATIVE (Negative); URINE LEUKOCYTES-REFLEX NEGATIVE (Negative); URINE NITRITE-REFLEX NEGATIVE (Negative); URINE PROTEIN (DIPSTICK) 2+ (Negative)
[2017-10-29 09:18] LABS: HYALINE CASTS 0-3 Few /LPF (None Seen); URINE RBC None Seen /HPF (0-2); URINE WBC-REFLEX 0-5 Rare /HPF (0-5)
[2017-10-29 09:19] LABS: CASTS None Seen /LPF (None Seen); CRYSTALS None Seen /LPF (None Seen); SQUAMOUS None Seen /LPF (0-3)
[2017-10-29 15:19] VITALS: BP 118/49
[2017-10-29 15:40] VITALS: BP 121/67
[2017-10-29 16:53] LABS: HEMATOCRIT 36.6 % (37.0-47.0); HEMOGLOBIN 12.3 gm/dL (12.0-15.0)
[2017-10-29 20:00] VITALS: BP 136/75
[2017-10-30] VITALS (10 sets, daily range): BP systolic 90–159; BP diastolic 47–78
[2017-10-30 04:58] LABS: ABSOLUTE NEUTROPHILS 6.6 thou/uL (1.4-8.2); BASOPHILS 0.1 % (0.0-2.0); HEMOGLOBIN 12.7 gm/dL (12.0-15.0); LYMPHOCYTES 15.6 % (24.0-44.0); MCHC 33.3 g/dL (28.0-37.0); MCV 90.2 fL (80.0-100.0); MONOCYTES 9.6 % (1.0-8.0); PLATELET COUNT 169 thou/uL (150-400); POLYS 74.7 % (36.0-66.0); RBC 4.22 mil/uL (4.20-5.00); RDW 15.1 % (10.5-14.5); WBC 8.9 thou/uL (4.0-11.0)
[2017-10-30 05:17] LABS: CALCIUM 8.6 mg/dL (8.5-10.1); CREATININE 1.2 mg/dL (0.6-1.0); MAGNESIUM 1.8 mg/dL (1.8-2.4)
[2017-10-31 04:10] LABS: HEMATOCRIT 33.4 % (37.0-47.0); HEMOGLOBIN 11.5 gm/dL (12.0-15.0); MCH 30.6 pg (26.0-34.0); MCHC 34.4 g/dL (28.0-37.0); MCV 88.9 fL (80.0-100.0); RBC 3.76 mil/uL (4.20-5.00); RDW 14.8 % (10.5-14.5); WBC 6.4 thou/uL (4.0-11.0)
[2017-10-31 04:22] VITALS: BP 181/94
[2017-10-31 04:28] LABS: CALCIUM 8.1 mg/dL (8.5-10.1); CREATININE 1.4 mg/dL (0.6-1.0); POTASSIUM 3.7 mmol/L (3.5-5.1)
[2017-10-31 07:50] VITALS: BP 109/65
[2017-10-31 14:42] VITALS: BP 109/65
[2017-10-31 15:35] VITALS: BP 96/50
[2017-10-31 20:27] VITALS: BP 109/52
[2017-11-01 03:52] VITALS: BP 126/78
[2017-11-01 08:00] VITALS: BP 144/72
[2017-11-01 15:14] VITALS: BP 116/64
[2017-11-01 19:06] VITALS: BP 143/69
[2017-11-02 03:48] VITALS: BP 139/57
[2017-11-02 04:05] LABS: ABSOLUTE NEUTROPHILS 4.1 thou/uL (1.4-8.2); BASOPHILS 0.1 % (0.0-2.0); HEMATOCRIT 33.6 % (37.0-47.0); HEMOGLOBIN 11.6 gm/dL (12.0-15.0); LYMPHOCYTES 21.1 % (24.0-44.0); MCH 30.5 pg (26.0-34.0); MCHC 34.6 g/dL (28.0-37.0); MCV 88.2 fL (80.0-100.0); MONOCYTES 9.8 % (1.0-8.0); PLATELET COUNT 156 thou/uL (150-400); RBC 3.81 mil/uL (4.20-5.00); RDW 14.7 % (10.5-14.5)
[2017-11-02 04:18] LABS: CALCIUM 8.7 mg/dL (8.5-10.1); CREATININE 1.2 mg/dL (0.6-1.0); POTASSIUM 3.9 mmol/L (3.5-5.1)
[2017-11-02 08:00] VITALS: BP 117/58
[2017-11-02 09:35] VITALS: BP 117/58
[2017-11-02] MEDS ORDERED: CEFUROXIME250 MG PO (10:42)
[2017-11-02] MEDS ORDERED: CARVEDILOL12.5 MG PO (10:42)
[2017-11-02] MEDS ORDERED: PANTOPRAZOLE SO40 M1 PO (10:42)
[2017-11-02] MEDS ORDERED: PRILOSEC10 MG PO (11:38)
[2017-11-02] MEDS ORDERED: PREVACID30 MG PO (11:59)
[2017-12-29] MEDS ORDERED: ACETAMINOPHEN-1 EAC1 PO ×2 (13:54→14:32)
[2017-12-29] MEDS ORDERED: K-DUR 20 MEQ T20 MEQ PO (13:54)
[2017-12-29] MEDS ORDERED: CHILDREN'S ASPI81 M1 PO (13:55)
[2018-08-03] MEDS ORDERED: XANAX 0.25 MG0.25 MG PO (15:06)
[2018-08-03] MEDS ORDERED: CYMBALTA20 MG PO (15:07)
== END 2017-11-02 13:22 | disposition home health service (06) | DRG 377 ==
LOC: ER 07:45 → EROBS 08:56 → 4E 08:56
PROVIDERS: Emergency Medicine; Hospitalist; Internal Medicine; Nurse Practitioner
PROC: B24BZZ4 Ultrasonography of Heart with Aorta, Transesophageal (ICD-10-PCS; principal; 2017-10-29)
PROC: 0DJ08ZZ Inspection of Upper Intestinal Tract, Via Natural or Artificial Opening Endoscopic (ICD-10-PCS; 2017-10-31)
DX: K92.2 Gastrointestinal hemorrhage, unspecified (principal); I50.23 Acute on chronic systolic (congestive) heart failure; I13.0 Hypertensive heart and chronic kidney disease with heart failure and stage 1 through stage 4 chronic kidney disease, or unspecified chronic kidney disease; N17.9 Acute kidney failure, unspecified; J98.11 Atelectasis; D68.59 Other primary thrombophilia; N39.0 Urinary tract infection, site not specified; I42.9 Cardiomyopathy, unspecified; K52.9 Noninfective gastroenteritis and colitis, unspecified; E86.0 Dehydration; N18.3 Chronic kidney disease, stage 3 (moderate); B96.4 Proteus (mirabilis) (morganii) as the cause of diseases classified elsewhere; G47.33 Obstructive sleep apnea (adult) (pediatric); I27.20 Pulmonary hypertension, unspecified; Z66 Do not resuscitate; I48.91 Unspecified atrial fibrillation; Z96.653 Presence of artificial knee joint, bilateral; E03.9 Hypothyroidism, unspecified; J44.9 Chronic obstructive pulmonary disease, unspecified; K76.0 Fatty (change of) liver, not elsewhere classified; N28.1 Cyst of kidney, acquired; M19.90 Unspecified osteoarthritis, unspecified site; E11.22 Type 2 diabetes mellitus with diabetic chronic kidney disease; K21.0 Gastro-esophageal reflux disease with esophagitis; K44.9 Diaphragmatic hernia without obstruction or gangrene; G89.4 Chronic pain syndrome; F41.9 Anxiety disorder, unspecified; E11.43 Type 2 diabetes mellitus with diabetic autonomic (poly)neuropathy; F32.9 Major depressive disorder, single episode, unspecified; G25.81 Restless legs syndrome; Z90.710 Acquired absence of both cervix and uterus; Z90.49 Acquired absence of other specified parts of digestive tract; Z98.42 Cataract extraction status, left eye; Z86.74 Personal history of sudden cardiac arrest; Z98.41 Cataract extraction status, right eye; Z99.81 Dependence on supplemental oxygen; Z86.010 Personal history of colon polyps; Z79.51 Long term (current) use of inhaled steroids; Z79.82 Long term (current) use of aspirin; Z79.899 Other long term (current) drug therapy; Z88.0 Allergy status to penicillin; Z88.1 Allergy status to other antibiotic agents; Z88.2 Allergy status to sulfonamides; Z88.8 Allergy status to other drugs, medicaments and biological substances; Z82.5 Family history of asthma and other chronic lower respiratory diseases
CPT/HCPCS: 10183; 62110; 62900; 70005

== ENCOUNTER → 2017-12-29 | Outpatient (CLI) | payer OTHER ==
[~2017-12-29] VITALS: Ht 160 cm; Wt 64.9 kg
[~2017-12-29] MED LIST changes: +ADVAIR HFA 230M12 GM INH; +BENADRYL25 MG PO; +CARDIZEM CD180 MG PO; +CEFUROXIME250 MG PO; +CHILDREN'S ASPI81 M1 PO; +EPIPEN0.3 MG/0.1 IM; +K-DUR 20 MEQ T20 MEQ PO; +MIRALAX17 GM PO; +ONDANSETRON HCL4 M2 PO; +PANTOPRAZOLE SO40 M1 PO; +PRILOSEC10 MG PO; +REMERON15 MG PO; +TRAZODONE HCL50 MG PO
--- NOTE | ~2017-12-29 | HPC ---
[facility] [place] [address] PAIN MANAGEMENT CONSULTATION Name: EFFIE JENKINS Room #: REG ALANNAH Calvo.#: [id number] Admission: 12/29/17 Attend Phys: Omari Pemberton MD Discharge: Date of : 29 Report #: [id number] THIS REPORT FOR: //name// CC: Omari Calderon MD DATE OF SERVICE: 12/29/2017 Followup visit for bilateral osteoarthritis of the shoulders and complaints of trigger finger, right hand. The patient is here today for shoulder injection. She has responded favorably in the past. Pain reduced by over 75% in the shoulders. She also has a trigger finger and I have agreed to perform an injection of the tendon sheath, which has been considered in the past. She scores her pain today as an 8/10. She is in electric wheelchair. She is a fall risk. She is on an opioid medication and I have provided with Tylenol No. 3 q. 8 hours, which she uses cautiously and carefully on an as needed basis when the pain is severe. She has a number of comorbidities, which were reviewed from the electronic medical record. Please review. Allergies reviewed as well from the electronic medical record. The patient has chronic oxygen use at home. She suffers from COPD and also has cardiomyopathy with atrial fibrillation. PHYSICAL EXAMINATION: GENERAL: She is a pleasant female in a wheelchair, alert and oriented with no signs of anxiety or dementia today. VITAL SIGNS: Her blood pressure is 113/59, heart rate 73, respirations 14. EXTREMITIES: She has bilateral restriction in the shoulder movement predicted with abduction and external rotation. She has pain below the acromion process. Trigger finger in the third finger of the right hand. IMPRESSION: Osteoarthritis, bilateral shoulders and trigger finger. PROCEDURE: Bilateral shoulder injections and injection of tendon sheath of the third digit. DESCRIPTION OF PROCEDURE: Skin was prepped first in the hand. A 27-gauge needle was gently used to infiltrate a total of 1 mL of 0.5% bupivacaine and 10 mg of triamcinolone along the flexor tendon sheath. This was gently massaged and she was able then to flex and extend the finger much more easily even before discharge. [facility] [address] [place] [address] PAIN MANAGEMENT CONSULTATION Name: EFFIE JENKINS Room #: REG [facility].#: [id number] Admission: 12/29/17 Attend Phys: Omari Pemberton MD Discharge: Date of : 29 Report #: [id number] Skin was then prepped over the right shoulder and using a subacromial approach, I performed intra-articular shoulder injection with 4 mL of 0.5% bupivacaine and 30 mg of triamcinolone. The same was repeated on the left without complication. She tolerated the procedures well. Follow up as needed. I did provide her with a prescription for #60 tablets of Tylenol No. 3 to be used cautiously and carefully. This carries a very low morphine milligram equivalency of less than 1 MME per day. <ELECTRONICALLY SIGNED> By: Omari Pemberton MD 01/12/18 1408 1547 1747 Omari Pemberton MD /nt
[2017-12-29 13:35] VITALS: BP 113/59
== END | disposition home or self-care (01) ==
LOC: PAIN 07:12
DX: M19.012 Primary osteoarthritis, left shoulder (principal); M19.011 Primary osteoarthritis, right shoulder; M65.30 Trigger finger, unspecified finger; J44.9 Chronic obstructive pulmonary disease, unspecified; I48.91 Unspecified atrial fibrillation; I42.9 Cardiomyopathy, unspecified

== ENCOUNTER → 2018-08-03 | Outpatient (CLI) | payer OTHER ==
[~2018-08-03] VITALS: Ht 160 cm; Wt 72.6 kg
[~2018-08-03] MED LIST changes: +CYMBALTA20 MG PO
--- NOTE | ~2018-08-03 | HPC ---
[facility] [place] [address] PAIN MANAGEMENT CONSULTATION Name: EFFIE JENKINS [id number] Admission: 08/03/18 Attend Phys: Omari Pemberton MD Discharge: Date of : 29 Report #: [id number] THIS REPORT FOR: //name// CC: Omari Calderon MD DATE OF SERVICE: 08/03/2018 Followup visit for the patient who is a sweet 88-year-old female. She comes to us today complaining of severe pain in multiple locations. She has bilateral shoulder pain and significant weakness, particularly in the left arm. She has been dropping things when she tries to use her right hand. She has osteoarthritis involving the fingers, particularly the third and fourth finger of the right hand. She has a trigger finger there that gets stuck and she was hopeful that we might be able to provide an injection in that hand. Her left hand hurts severely as well. She has pain also in her hips, although she reports that is improved and she is doing a bit better. She scores her overall arm and shoulder pain as 9/10. She has received relief before with the use of injection therapy. She is certainly not a candidate for any surgery at this time. PQRS: 1. She does have marked osteoarthritis involving her large joints and in the joints of her hands. 2. Her BMI is 25. 3. Vital signs are stable. Blood pressure 113/59, heart rate 73, respirations 14, O2 sat 97. 4. Pain intensity overall is at 10/10, average daily pain 8/10. 5. She has fall risk and needs help standing, she uses a walker. 6. No blood thinners. 7. Hypertension, none. 8. Opioid agreement, yes. She has signed one and we provided with Tylenol No. 3, 60 tablets a month. She uses it only for severe pain and manages constipation associated with it. She is at low risk for addiction at the age of 87. She is completing the ORT. 9. Functional risk assessment tool of 36/70. 10. She does not use tobacco or alcohol. PHYSICAL EXAMINATION: Continuation reveals that her shoulders are markedly tender with adduction, internal and external rotation. She complains of severe pain. She has a scar on her left shoulder from previous surgery. Examination of the hands reveals changes of osteoarthritis. She has a trigger finger identified as well in both the right and left hand. The left finger during the exam bothers her more and she has requested that we inject the third flexor tendon if we can and we have done this before with some benefit. [address] [address] PAIN MANAGEMENT CONSULTATION Name: EFFIE JENKINS Room #: REG [facility] Umesh.#: [id number] Admission: 08/03/18 Attend Phys: Omari Pemberton MD Discharge: Date of : 29 Report #: [id number] PROCEDURE: Bilateral shoulder injection with triamcinolone and injection of left flexor tendon third digit using distal palmar approach. We began first with the shoulders. The skin was prepped with ChloraPrep. A 25-gauge needle was gently advanced using a subacromial approach into the shoulder joint. I injected 2 mL of 0.5% bupivacaine and 20 mg of triamcinolone. Needle was removed. The procedure was repeated on the right. There were no complications. We then identified the trigger finger on the left hand. Skin was prepped distally in the palmar aspect with ChloraPrep. I used the 30-gauge needle to anesthetize the small area with a skin wheal between the second and third digit. I then used a 27-gauge 1-1/4 inch needle and gently advanced along the course of the tendon sheath in a distal to proximal fashion and injected slowly a total of 1 mL of 0.5% bupivacaine mixed with 20 mg of triamcinolone. The needle was removed. There were no complications. She left with a pain score of 0. We will see how this helps her hands. We have had some good response with this, but it is [id number]. I will check back with her in a couple of months. By: 0820 1534 Omari Pemberton MD /nt
[2018-08-03 14:59] VITALS: BP 114/60
== END | disposition home or self-care (01) ==
LOC: PAIN 06:27
DX: M19.041 Primary osteoarthritis, right hand (principal); M25.512 Pain in left shoulder; M25.511 Pain in right shoulder; M25.541 Pain in joints of right hand; G89.29 Other chronic pain; I13.0 Hypertensive heart and chronic kidney disease with heart failure and stage 1 through stage 4 chronic kidney disease, or unspecified chronic kidney disease; E11.22 Type 2 diabetes mellitus with diabetic chronic kidney disease; N18.9 Chronic kidney disease, unspecified; I50.9 Heart failure, unspecified; Z79.899 Other long term (current) drug therapy; I48.91 Unspecified atrial fibrillation; I42.9 Cardiomyopathy, unspecified; Z88.0 Allergy status to penicillin; Z79.01 Long term (current) use of anticoagulants; Z88.2 Allergy status to sulfonamides; Z87.440 Personal history of urinary (tract) infections; Z91.041 Radiographic dye allergy status; Z79.82 Long term (current) use of aspirin; M65.332 Trigger finger, left middle finger

== ENCOUNTER 2018-09-12 15:00 | Inpatient (IN) | payer OTHER ==
[~2018-09-12] VITALS: Ht 160 cm; Wt 71.3 kg
--- NOTE | ~2018-09-12 | EKG ---
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
--- NOTE | ~2018-09-12 | HC ---
[facility] [address] [place] [address] CONSULTATION Name: EFFIE JENKINS Room #: 214-P ADM IN M.R.#: [id number] Admission: 09/12/18 Attend Phys: Nakul Hunt MD Discharge: Date of : 29 Report #: [id number] THIS REPORT FOR: //name// CC: Nakul Calderon HISTORY OF PRESENT ILLNESS: The patient is an 88-year-old female known to our group. Generally followed by Dr. Ethan Hernandez. Admitted with some progressive dyspnea, shortness of breath, some mild PND. Presented to the Emergency Room with mild hypoxemia. Has a known severe nonischemic cardiomyopathy, EF has been in the 30% range. Was just seen [address] Hernandez in the office and then had the Lasix increased for a few days due to some mild volume overload. She likes to have an occasional Dr. Cata [employer], could be some dietary indiscretion here. She denies any chest pain or pressure. She also has some mild aortic valve stenosis. The echo had a valve of 1.7 and cuebcnsr-un-mjbnee MR, TR. PA pressures have been in the 60s. That was last noted in October of this year. We will repeat the echo in the morning. Although she has diuresed nicely with the IV Lasix, is symptomatically better. She has permanent atrial fibrillation, but has had some bleeding issues, so not anticoagulated. The rate is well controlled on her current regimen. HOME MEDICATIONS: Xanax p.r.n., baby aspirin, calcium, Coreg 12.5 b.i.d., diltiazem 180, iron, Lasix 40, gabapentin, [place], DuoNeb, magnesium, Protonix, Mirapex, Senokot, trazodone. PAST MEDICAL HISTORY: Positive for the nonischemic cardiomyopathy, history of some mild recurrent heart failure, mildly severe valvular insufficiency in mitral with moderate pulmonary hypertension, aortic stenosis, mild DJD, prior hernia repair, hysterectomy, back surgery, bilateral total knees, right shoulder arthroplasty, spinal fusion, tonsillectomy, appendectomy, adenoidectomy and some question of sleep apnea. SOCIAL HISTORY: She is . Used to be to [employer], who is well familiar to me. She has 4 children. She lives in assisted but independent living. No current alcohol or tobacco. FAMILY HISTORY: Negative for premature coronary artery disease. ALLERGIES: FOSAMAX, LATEX, PENICILLINS AND SULFA. PHYSICAL EXAMINATION: VITAL SIGNS: Pulse is 80s, blood pressure is 136/76. HEENT: Eyes reveal xanthelasmas. There is an arcus. Pharynx is clear. NECK: Shows preserved upstrokes, no significant JVD, no bruits are noted. LUNGS: Clear anteriorly, slight diminished in the bases, few crackles. CARDIAC: Irregularly irregular, S1, S2. There is a systolic murmur, deeper [facility] [address] [place] [address] CONSULTATION Name: EFFIE JENKINS Room #: 214-P ADM IN M.R.#: [id number] Admission: 09/12/18 Attend Phys: Nakul Hunt MD Discharge: Date of : 29 Report #: [id number] pitched upper right sternal border and a higher pitched holosystolic murmur now at the apex. ABDOMEN: Soft. No HSM or abdominal bruit. EXTREMITIES: Reveal trace of edema, nonpitting. NEUROLOGIC: Nonfocal. SKIN: Warm and dry without xanthoma or ulcer, mild venous stasis changes. NEUROLOGIC: Intact. ASSESSMENT: 1. Acute on chronic systolic heart failure. 2. Permanent atrial fibrillation, not anticoagulated due to bleeding issue. 3. Hypertension. 4. Hypercholesterolemia. 5. Hypothyroidism. 6. Degenerative joint disease. RECOMMENDATIONS AND PLAN: We will continue IV Lasix today. We would then recommend switching due to probable p.o. Demadex, maybe a better agent for her than p.o. Lasix. Did revisit the fluid and sodium restriction with her. We will repeat the echo Doppler due to the valvular issues, now the last echo was nearly a year ago, we will repeat in the morning. Hope for a quick return home in the next day or so. We will discuss with hospitalist, Dr. Ethan Hernandez and we will resume her care in the morning. Thank you for asking me to assist in the care of this patient. By: 0840 1118 Thaddeus Lott MD, FACC /nt
--- NOTE | ~2018-09-12 | 2DMMODE ---
[facility] [place] [address] 2 D/M-MODE ECHOCARDIOGRAM Name: EFFIE JENKINS Room #: 214-P ADM IN M.R.#: [id number] Admission: 09/12/18 Attend Phys: Nakul Hutn MD Discharge: Date of : 29 Date of Service: 09/14/18 1048 Report #: [id number] THIS REPORT FOR: //name// APPROVED REPORT Study performed: 09/14/2018 09:20:58 EXAM: Comprehensive 2D, Doppler, and color-flow Echocardiogram Patient Location: Bedside Room #: 214 Status: routine BSA: 1.74 HR: 86 bpm BP: 108/61 mmHg Rhythm: Irregular Other Information Study Quality: Good Indications Short of breath, cardiomyopathy, CHF. Hx: NISCM, CHF, HTN, HLP 2D Dimensions RVDd: 40.24 mm IVSd: 13.01 (7-11mm) LVOT Diam: 21.80 (18-24mm) LVDd: 57.63 mm PWd: 7.74 (7-11mm) Ascending Ao: 36.71 (22-36mm) LVDs: 51.43 (25-40mm) Aortic Root: 36.11 mm Volumes Left Atrial Volume (Systole) Single Plane 4CH: 123.17 mL Single Plane 2CH: 160.55 mL LA ESV Index: 87.00 mL/m2 Aortic Valve AoV Peak Colt.: 2.08 m/s AO Peak Gr.: 17.27 mmHg LVOT Max P.80 mmHg AO Mean Gr.: 7.64 mmHg AO V2 Mean: 1.28 m/s LVOT Max V: 0.67 m/s AO V2 VTI: 38.34 cm EPHRAIM Vmax: 1.20 cm2 Mitral Valve MV Decel. Time: 118.59 ms [facility] [place] [address] 2 D/M-MODE ECHOCARDIOGRAM Name: EFFIE JENKINS Room #: 214-P [facility] IN .R.#: [id number] Admission: 09/12/18 Attend Phys: Nakul Hunt MD Discharge: Date of : 29 Date of Service: 09/14/18 1048 Report #: [id number] Max Colt.: 1.31 m/s Tricuspid Valve TR Peak Colt.: 3.30 m/s RAP Estimate: 5.00 mmHg TR Peak Gr.: 43.68 mmHg PA Pressure: 49.00 mmHg Left Ventricle Left ventricle is mildly dilated. There is global hypokinesis of the left ventricle. Mild basal septal hypertrophy is present. Left ventricular systolic function is severely decreased. LVEF is 25-30%. This study is not technically sufficient to allow evaluation of the LV diastolic function. Right Ventricle The right ventricle is normal size. Right ventricle is mildly hypokinetic. Atria Left atrium is severely dilated. Right atrium is mildly dilated. Aortic Valve Aortic valve is mildly calcified, trileaflet Mild aortic regurgitation. Mild aortic stenosis. EPHRAIM by continuity equation is 1.4cm2. Mitral Valve Mitral valve leaflets are thickened. Mild mitral annular calcification. Moderate to severe mitral regurgitation No evidence of mitral valve stenosis. Tricuspid Valve The tricuspid valve is normal in structure. Mild tricuspid regurgitation. Estimated PAP is 50mmHg. Pulmonic Valve The pulmonary valve is normal in structure. Mild pulmonic regurgitation. Great Vessels The aortic root is normal in size. The ascending aorta is normal in size. IVC is normal in size and collapses >50% with inspiration. Pericardium [address] [address] 2 D/M-MODE ECHOCARDIOGRAM Name: EFFIE JENKINS Room #: 214-P [facility] IN M.R.#: [id number] Admission: 09/12/18 Attend Phys: Nakul Hunt MD Discharge: Date of : 29 Date of Service: 09/14/18 1048 Report #: [id number] There is no pericardial effusion. <Conclusion> Left ventricular systolic function is severely decreased. There is global hypokinesis of the left ventricle. LVEF 25-30%. Left atrium is severely dilated. Aortic valve is mildly calcified, trileaflet. Mild aortic stenosis. EPHRAIM by continuity equation is 1.4cm2. Mild aortic regurgitation. Mitral valve leaflets are thickened. Mild mitral annular calcification. Moderate to severe mitral regurgitation Mild tricuspid regurgitation. Estimated pulmonary artery pressure of 50mmHg. There is no pericardial effusion. <ELECTRONICALLY SIGNED> By: Ethan Hernandez MD, [facility] 09/14/18 1048 47 Ethan Hernandez MD, FACC /INF
[2018-09-12 15:06] VITALS: BP 109/58
[2018-09-12 15:32] LABS: BASOPHILS 0.4 % (0.0-2.0); HEMATOCRIT 40.9 % (37.0-47.0); HEMOGLOBIN 13.8 gm/dL (12.0-15.0); LYMPHOCYTES 5.2 % (24.0-44.0); MCH 28.6 pg (26.0-34.0); MCHC 33.7 g/dL (28.0-37.0); MONOCYTES 6.6 % (1.0-8.0); PLATELET COUNT 238 thou/uL (150-400); POLYS 87.8 % (36.0-66.0); RBC 4.81 mil/uL (4.20-5.00); RDW 15.9 % (10.5-14.5); WBC 11.4 thou/uL (4.0-11.0)
[2018-09-12 15:41] LABS: ANION GAP 5 mmol/L (7-16); BUN 25 mg/dL (7-18); CALCIUM 9.2 mg/dL (8.5-10.1); CHLORIDE 97 mmol/L (98-107); CO2 36 mmol/L (21-32); CREATININE 1.2 mg/dL (0.6-1.0); GLUCOSE 129 mg/dL (74-106); POTASSIUM 4.5 mmol/L (3.5-5.1); SODIUM 138 mmol/L (136-145)
[2018-09-12 15:49] LABS: ALBUMIN 3.2 g/dL (3.4-5.0); SGOT 11 U/L (15-37); SGPT 12 U/L (30-65); TOTAL BILIRUBIN 1.5 mg/dL (<0.1-1.0); TOTAL PROTEIN 6.8 g/dL (6.4-8.2); TROPONIN-I <0.06 ng/mL (<0.06)
[2018-09-12 15:50] LABS: BE(vivo) 8.1 mmol/L (-2 to +3); HCO3 32.3 mmol/L (22.0-26.0); PCO2 42.9 mmHg (35.0-45.0); PO2 72.6 mmHg (80.0-100.0); pH 7.494 (7.360-7.450); sO2 95.6 % (92.0-98.0)
[2018-09-12] MEDS ORDERED: JANUVIA50 MG PO (17:29)
[2018-09-12] MEDS ORDERED: LANSOPRAZOLE30 MG PO (17:30)
[2018-09-12] MEDS ORDERED: REMERON15 MG PO (17:30)
[2018-09-12 18:46] VITALS: BP 95/51
[2018-09-12 19:00] VITALS: BP 115/53
[2018-09-13 05:33] VITALS: BP 117/52
[2018-09-13 05:40] LABS: HEMATOCRIT 39.4 % (37.0-47.0); HEMOGLOBIN 13.2 gm/dL (12.0-15.0); MCH 28.8 pg (26.0-34.0); MCHC 33.6 g/dL (28.0-37.0); MCV 85.9 fL (80.0-100.0); RBC 4.58 mil/uL (4.20-5.00); RDW 16.6 % (10.5-14.5); WBC 7.3 thou/uL (4.0-11.0)
[2018-09-13 05:52] LABS: CREATININE 1.3 mg/dL (0.6-1.0); MAGNESIUM 1.6 mg/dL (1.8-2.4); POTASSIUM 4.2 mmol/L (3.5-5.1)
[2018-09-13 08:05] VITALS: BP 108/60
[2018-09-13 10:57] LABS: URINE BILIRUBIN NEGATIVE (Negative); URINE BLOOD TRACE (Negative); URINE CLARITY CLEAR; URINE COLOR YELLOW; URINE GLUCOSE-RANDOM* NEGATIVE (Negative); URINE KETONES NEGATIVE (Negative); URINE NITRITE-REFLEX NEGATIVE (Negative); URINE PROTEIN (DIPSTICK) NEGATIVE (Negative); URINE UROBILINOGEN 0.2 E.U./dl (0.2-1.0)
[2018-09-13 11:11] LABS: URINE LEUKOCYTES-REFLEX 3+ (Negative)
[2018-09-13 11:19] LABS: CASTS None Seen /LPF (None Seen); CRYSTALS None Seen /LPF (None Seen); SQUAMOUS 0-3 Few /LPF (0-3); URINE RBC 0-2 Rare /HPF (0-2); URINE WBC-REFLEX >25 Many /HPF (0-5); WBC CLUMPS Few (None Seen)
[2018-09-13 11:55] VITALS: BP 118/58
[2018-09-13 15:48] VITALS: BP 105/59
[2018-09-13 19:55] VITALS: BP 101/52
[2018-09-14 04:45] VITALS: BP 123/46
[2018-09-14 08:00] VITALS: BP 108/61
[2018-09-14 11:40] VITALS: BP 123/56
[2018-09-14 16:15] VITALS: BP 138/75
[2018-09-14 20:15] VITALS: BP 108/57
[2018-09-15 03:30] LABS: CALCIUM 9.5 mg/dL (8.5-10.1); CREATININE 1.2 mg/dL (0.6-1.0); MAGNESIUM 1.6 mg/dL (1.8-2.4); POTASSIUM 4.8 mmol/L (3.5-5.1)
[2018-09-15 04:00] LABS: FOLIC ACID 15.3 ng/mL (8.6-58.9); TSH 1.92 uIU/mL (0.358-3.740)
[2018-09-15 04:30] VITALS: BP 106/43
[2018-09-15 08:32] VITALS: BP 112/57
[2018-09-15 10:40] LABS: URINE BILIRUBIN NEGATIVE (Negative); URINE BLOOD TRACE (Negative); URINE CLARITY CLOUDY; URINE COLOR YELLOW; URINE GLUCOSE-RANDOM* NEGATIVE (Negative); URINE KETONES NEGATIVE (Negative); URINE NITRITE-REFLEX NEGATIVE (Negative); URINE PROTEIN (DIPSTICK) TRACE (Negative)
[2018-09-15 10:41] LABS: URINE LEUKOCYTES-REFLEX 3+ (Negative)
[2018-09-15 10:52] LABS: CASTS None Seen /LPF (None Seen); SQUAMOUS >10 Many /LPF (0-3)
[2018-09-15 10:53] LABS: CALCIUM OXALATE 0-3 Few /LPF (None Seen); URINE WBC-REFLEX >25 Many /HPF (0-5)
[2018-09-15 10:54] LABS: BACTERIA-REFLEX >30 Many /HPF (None Seen); URINE RBC 0-2 Rare /HPF (0-2)
[2018-09-15 12:03] LABS: URINE BILIRUBIN NEGATIVE (Negative); URINE BLOOD NEGATIVE (Negative); URINE CLARITY SL CLOUDY; URINE COLOR YELLOW; URINE GLUCOSE-RANDOM* NEGATIVE (Negative); URINE KETONES NEGATIVE (Negative); URINE NITRITE-REFLEX NEGATIVE (Negative); URINE PROTEIN (DIPSTICK) NEGATIVE (Negative); URINE SPECIFIC GRAVITY 1.015 (1.005-1.035)
[2018-09-15 12:06] LABS: URINE LEUKOCYTES-REFLEX 1+ (Negative)
[2018-09-15 12:14] VITALS: BP 86/52
[2018-09-15 12:17] LABS: SQUAMOUS >10 Many /LPF (0-3)
[2018-09-15 12:18] LABS: CASTS None Seen /LPF (None Seen); URINE RBC 0-2 Rare /HPF (0-2); URINE WBC-REFLEX >25 Many /HPF (0-5)
[2018-09-15 12:19] LABS: BACTERIA-REFLEX >30 Many /HPF (None Seen); CRYSTALS None Seen /LPF (None Seen)
[2018-09-15 16:02] VITALS: BP 121/47
[2018-09-15 20:15] VITALS: BP 117/46
[2018-09-16 04:45] VITALS: BP 119/70
[2018-09-16 08:14] VITALS: BP 101/63
[2018-09-16 09:58] VITALS: BP 101/63
[2018-09-16] MEDS ORDERED: KEFLEX250 MG PO (10:31)
[2018-09-16] MEDS ORDERED: MAGNESIUM400 MG PO (10:32)
[2018-09-16 11:30] VITALS: BP 101/63
== END 2018-09-16 18:00 | disposition home health service (06) | DRG 291 ==
LOC: ER 15:00 → 2N 17:09 → EROBS 17:09 → 2N 18:47
PROVIDERS: Internal Medicine; Nurse Practitioner Family; Physician Assistant
DX: I13.0 Hypertensive heart and chronic kidney disease with heart failure and stage 1 through stage 4 chronic kidney disease, or unspecified chronic kidney disease (principal); I50.23 Acute on chronic systolic (congestive) heart failure; J96.21 Acute and chronic respiratory failure with hypoxia; N18.4 Chronic kidney disease, stage 4 (severe); E46 Unspecified protein-calorie malnutrition; N39.0 Urinary tract infection, site not specified; I42.9 Cardiomyopathy, unspecified; Z96.653 Presence of artificial knee joint, bilateral; J44.9 Chronic obstructive pulmonary disease, unspecified; E03.9 Hypothyroidism, unspecified; F32.9 Major depressive disorder, single episode, unspecified; G25.81 Restless legs syndrome; K59.00 Constipation, unspecified; E11.22 Type 2 diabetes mellitus with diabetic chronic kidney disease; I27.20 Pulmonary hypertension, unspecified; I48.2 Chronic atrial fibrillation; E78.00 Pure hypercholesterolemia, unspecified; G47.33 Obstructive sleep apnea (adult) (pediatric); E53.8 Deficiency of other specified B group vitamins; K44.9 Diaphragmatic hernia without obstruction or gangrene; M19.90 Unspecified osteoarthritis, unspecified site; I35.0 Nonrheumatic aortic (valve) stenosis; K21.9 Gastro-esophageal reflux disease without esophagitis; E83.42 Hypomagnesemia; I34.0 Nonrheumatic mitral (valve) insufficiency; Z68.27 Body mass index [BMI] 27.0-27.9, adult; Z90.710 Acquired absence of both cervix and uterus; Z98.42 Cataract extraction status, left eye; Z98.41 Cataract extraction status, right eye; Z88.0 Allergy status to penicillin; Z88.2 Allergy status to sulfonamides; Z88.1 Allergy status to other antibiotic agents; Z91.041 Radiographic dye allergy status; Z91.040 Latex allergy status; Z83.6 Family history of other diseases of the respiratory system; Z79.899 Other long term (current) drug therapy; Z90.49 Acquired absence of other specified parts of digestive tract; Z99.3 Dependence on wheelchair
CPT/HCPCS: 10081

== ENCOUNTER 2018-11-12 09:22 | Inpatient (IN) | payer OTHER ==
[~2018-11-12] VITALS: Ht 152.4 cm; Wt 79.8 kg
[~2018-11-12 09:22] MED LIST changes: +KEFLEX250 MG PO; +MAGNESIUM400 MG PO
--- NOTE | 2018-11-12 09:46 | EKG ---
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: GAVI : 1930 Requested By: Son Shaffer Order Number: [id number] MD: Ethan Hernandez Measurements Intervals [place] Rate: 59 P: NE: QRS: -82 QRSD: 152 T: 60 QT: 447 QTc: 443 Interpretive Statements Atrial fibrillation RBBB and LAFB Compared to ECG 09/12/2018 16:51:45 Ventricular premature complex(es) no longer present Electronically Signed On 11-12-2018 9:46:30 FLYING SQUAD SALESPERSON by Ethan Hernandez [email or web address] <ELECTRONICALLY SIGNED> By: Etahn Hernandez MD, [facility] 11/12/1846 5 5 Ethan Hernandez MD, FACC /EPI
[2018-11-12 09:52] LABS: HEMATOCRIT 44.6 % (37.0-47.0); HEMOGLOBIN 15.5 gm/dL (12.0-15.0); MCH 29.8 pg (26.0-34.0); MCHC 34.8 g/dL (28.0-37.0); MCV 85.7 fL (80.0-100.0); PLATELET COUNT 263 thou/uL (150-400); RBC 5.21 mil/uL (4.20-5.00); RDW 14.5 % (10.5-14.5); WBC 13.2 thou/uL (4.0-11.0)
[2018-11-12 10:02] LABS: ANION GAP 7 mmol/L (7-16); BUN 41 mg/dL (7-18); CALCIUM 9.1 mg/dL (8.5-10.1); CHLORIDE 99 mmol/L (98-107); CO2 30 mmol/L (21-32); CREATININE 1.5 mg/dL (0.6-1.0); GLUCOSE 102 mg/dL (74-106); SODIUM 136 mmol/L (136-145)
[2018-11-12 10:05] LABS: POTASSIUM 4.4 mmol/L (3.5-5.1)
[2018-11-12 10:12] LABS: TROPONIN-I <0.06 ng/mL (<0.06)
[2018-11-12] MEDS ORDERED: BACTROBAN15 GM TRANSDERM (10:29)
[2018-11-12 10:45] LABS: ABSOLUTE NEUTROPHILS 11.1 thou/uL (1.4-8.2); METAMYELOCYTES 3 %; MYELOCYTES 1 %
[2018-11-12 10:46] LABS: ANISOCYTOSIS SLIGHT; OVALOCYTES FEW
[2018-11-12 11:33] VITALS: BP 125/53
[2018-11-12 12:16] LABS: TSH 0.801 uIU/mL (0.358-3.740)
[2018-11-12 12:24] VITALS: BP 100/41
[2018-11-12 12:59] VITALS: BP 133/54
[2018-11-12 16:00] VITALS: BP 137/52
[2018-11-12 19:23] VITALS: BP 127/47
[2018-11-12] MEDS ORDERED: ACETAMINOPHEN-1 EAC1 PO (20:30)
[2018-11-13 03:46] VITALS: BP 133/53
--- NOTE | 2018-11-13 04:18 | NUR ---
ASSUMED CARE AT 1900, ASSESSMENT COMPLETED. PT REPORTS CHRONIC BACK PAIN THAT SHE TAKES TYLENOL 3'S FOR, OBTAINED ORDER. DENIES NAUSEA. IS SOB WITH MINIMAL EXERTION, DENIES PRODUCTIVE COUGH, ON 2.5L O2 VIA NC, ON CONT. PULSE OX AND SATTING IN HIGH 90'S WITH HR IN HIGH 50-60'S. HAS CHRONIC CONSTIPATION, GAVE MIRALAX AND SENNOKOT, PT DID NOT WANT A PREPARATION H SUPP. AT THIS TIME. NO OTHER CONCERNS, PLAN TO TRANSFER TO SENIOR SUITES THIS AM, WILL CONTINUE TO MONITOR.
[2018-11-13 04:27] LABS: HEMATOCRIT 40.8 % (37.0-47.0); HEMOGLOBIN 13.8 gm/dL (12.0-15.0); MCH 29.4 pg (26.0-34.0); MCHC 33.7 g/dL (28.0-37.0); MCV 87.3 fL (80.0-100.0); RBC 4.67 mil/uL (4.20-5.00); RDW 14.5 % (10.5-14.5); WBC 8.1 thou/uL (4.0-11.0)
[2018-11-13 05:45] VITALS: BP 147/77
--- NOTE | 2018-11-13 07:19 | NUR ---
PATIENT ARRIVED ON UNIT AT 0535 VIA WC WITH O2 @ 3L VIA NC. VSS. PT ORIENTED TO UNIT AND ROOM. RIGHT UPPER ARM PATENT WITH NS RUNNING AT 75 ML/HR. LEFT WRIST PIV PATENT AND SALINE LOCKED. PT A&O X4. CRACKLES NOTED TO BILATERAL LOWER LUNGS. MULTIPLE SCARS AND BRUISES NOTED ON BODY. PT IS CURRENTLY RELAXING IN BED WATCHING TV IN NO ACUTE DISTRESS. CALL LIGHT WITHIN REACH. BED LOCKED AND IN LOWEST POSITION.
[2018-11-13 08:30] VITALS: BP 139/74
--- NOTE | 2018-11-13 12:18 | NUR ---
INITIAL ASSESSMENT: JENNY reviewed chart and spoke with nursing and attending physician. Pt was admitted due to pneumonia. Pt was transferred to [facility] from . SW met with pt at bedside. Introduced role of SW. Pt is alert/orientated. Pt reports she lives alone in an apt in the Assisted Living facility at [facility]. Pt uses a walker to assist with ambulation. Pt is normally on 2.5L of O2 at home provided by [facility]. Pt has used [facility] in the past for home health. SW discussed need for possible SNF placement. Pt is hoping that she is able to return to her apt with HH, but will consider SNF if needed. SW explained referral process and need for insurance authorization. Pt verbalized understanding. Pt's PCP is Dr. Elen Calderon. JENNY faxed clinical info to [facility] SNF admissions and spoke with Michell in admissions, who confirms that they do accept pt's insurance. No weekend discharge anticipated. Awaiting thearpy evaluations at this time. JENNY is following to assist as needed with discharge planning.
--- NOTE | 2018-11-13 13:45 | NUR ---
PATIENT WAS SEEN ON CONSULT BY Dayana FIERRO, REHAB WRAP CHECKER. IT WAS DETERMINED THAT THIS PATIENT WOULD BE MORE APPROPRIATE FOR SKILLED LEVEL OF CARE WITH A LONGER TREATMENT COURSE TO GET HER BACK TO HER PLOF AT THE LEVEL. THIS WAS COMMUNICATED TO THE SW/CM. THANK YOU FOR THIS REFERRAL.
--- NOTE | 2018-11-13 15:46 | NUR ---
ASSUMED PATIENT AND CARES AT 0715, A&OX4, WOKE SITTING UP IN BED, [place] AND VISION IMPAIRMENT, LEFT WRIST SALINE LOCK, RAC PATENT WITH NS INFUSING, UP PER MAX ASSIST X2 FROM BED TO WHEELCHAIR FOR ULTRASOUND, PERSONAL BELONGINGS AND CALL LIGHT WITHIN REACH, WILL CONTINUE TO MONITOR
[2018-11-13 19:53] VITALS: BP 110/47
--- NOTE | 2018-11-14 04:40 | NUR ---
ASSUMED CARE OF PATIENT AT 1899. VSS. ASSESSMENT COMPLETED AT 2030 AND IS DOCUMENTED. PT C/O CONSTIPATION YESTERDAY EVENING. SCHEDULED MEDICATIONS GIVEN AND PATIENT WAS ABLE TO HAVE A LARGE BM. PT HAD SEVERAL EPISODES OF INCONTINENCE THROUGHOUT THE NIGHT. PT ABLE TO TRANSFER TO BS INDEPENDENTLY WITH MINIMAL ASSISTANCE NEEDED. RIGHT AC/UPPER ARM PIV PATENT WITH NS RUNNING AT 75 ML/HR. VANCO GIVEN PER DEC WITHOUT COMPLICATION. PT CONTINUES ON O2 @ 2.5L VIA NC. PT CURRENTLY SLEEPING SOUNDLY IN BED IN NO ACUTE DISTRESS. CALL LIGHT WITHIN REACH. BED LOCKED AND IN LOWEST POSITION. WCTM.
[2018-11-14 06:27] LABS: CALCIUM 8.4 mg/dL (8.5-10.1); CREATININE 1.1 mg/dL (0.6-1.0); PHOSPHORUS 3.7 mg/dL (2.5-4.9); POTASSIUM 4.1 mmol/L (3.5-5.1)
--- NOTE | 2018-11-14 07:15 | NUR ---
THIS NURSE AGREES WITH THE ASSESSMENT AND NOTES OF THE SUPERVISOR MARBLE.
[2018-11-14 08:00] VITALS: BP 138/97
[2018-11-14 17:26] VITALS: BP 144/66
[2018-11-14 19:49] VITALS: BP 139/69
--- NOTE | 2018-11-15 04:12 | NUR ---
ASSUMED CARE OF PATIENT AT 190. VSS. ASSESSMENT COMPLETED AT 2115 AND IS DOCUMENTED. PT CONTINUES ON CONTACT PRECAUTIONS FOR MRSA IN NARES. RIGHT HAND PIV PATENT AND SALINE LOCKED. VANCO INFUSED WITHOUT COMPLICATION. CONTINUES ON O2 @ 2.5L VIA NC WHICH IS BASELINE. CRACKLES NOTED TO BILAT LL. PT CURRENTLY SLEEPING SOUNDLY IN BED IN NO ACUTE DISTRESS. CALL LIGHT WITHIN REACH. BED LOCKED AND IN LOWEST POSITION. WCTM.
--- NOTE | 2018-11-15 04:40 | NUR ---
THIS NURSE AGREES WITH ASSESSMENT AND NOTES ON THIS PATIENT FROM POWDERED METAL SUPERVISOR.
[2018-11-15 06:57] LABS: CALCIUM 8.7 mg/dL (8.5-10.1); POTASSIUM 4.2 mmol/L (3.5-5.1)
[2018-11-15 08:00] VITALS: BP 163/74
[2018-11-15 10:59] VITALS: BP 163/74
--- NOTE | 2018-11-15 12:20 | NUR ---
AAOX4. ASSINIBOINE AND [place] TRIBES. MRSA NARES ISOLATION. CALLS FOR ASSISTANCE APPROPRIATELY. NO SOA NOTED. WILL CONTINUE TO MONITOR.
[2018-11-15 20:57] VITALS: BP 159/72
--- NOTE | 2018-11-16 04:10 | NUR ---
PATIENTS CARES WERE ASSUMED AT SHIFT CHANGE. PATIENT WAS ASSESSED AND MEDS WERE PASSED. HOURLY ROUNDING WAS DONE. THE BED IS IN A LOW AND LOCKED POSITION.
[2018-11-16 07:41] VITALS: BP 171/84
--- NOTE | 2018-11-16 10:54 | NUR ---
JENNY reviewed chart and spoke with nursing. Pt is progressing towards goals for discharge. Discharge back to [facility] with HH services is anticipated for tomorrow. JENNY met with pt at bedside to discuss discharge plan. SW discussed the option for SNF placement prior to returning to her AL apt. Pt states she is adamant about returning to her apt. SW does not want to go to the SNF. JENNY spoke with Haleigh at [facility] who states pt can return to her AL apt. JENNY also spoke with Jeaneth JACKSON) at [facility] who confirms plan. [facility] will need HH orders faxed to [phone] when available. does not have transportation available. JENNY updated admission coordinator at [facility]. JENNY updated intake at [facility]. JENNY is following to assist as needed with discharge planning.
--- NOTE | 2018-11-16 13:25 | NUR ---
ASSUMED CARE OF PATIENT THIS MORNING. PATIENT IS A&OX4. SHE IS UP WITH 1-2 ASSIST TO BS. PATIENT IS HARD OF HEARING. SHE IS IN ISOLATION FOR MRSA OF THE NARES. PATIENT HAS A HISTORY OF HTN AND AFIB. SHE HAS SLEEP APNEA AND WEARS A CPAP AT HOME AT NIGHT. UPON ASSESSMENT, SHE HAS DIMINISHED BREATH SOUNDS. SHE WEARS 2.5 LITERS OF OXYGEN. PATIENT HAS HYPOACTIVE BOWEL SOUNDS, LAST BOWEL MOVEMENT WAS THIS MORNING. SHE HAS HEMORROIDS AND SHE HAS ALSO BEEN PASSING FLATUS. PATIENT HAS SOME WEAKNESS AND ALSO HAS NEUROPATHY. IV SITE WENT BAD DURING THE NIGHT. IV WAS REMOVED THIS MORNING, AND IV TEAM STARTED A NEW ONE IN PATIENT'S LEFT AC. PATIENT IS CURRENTLY SITTING IN WHEELCHAIR WITH CALL LIGHT WITHIN REACH. PATIENT CALLS OUT APPROPRIATELY. WITHIN REACH. SHE WILL POSSIBLY BE DISCHARGED TOMORROW.
[2018-11-16 20:21] VITALS: BP 141/86
--- NOTE | 2018-11-17 06:20 | NUR ---
PATIENT ALERT AND ORIENTED X4. INCONT X2, CHANGED. WEARS BRIEFS WITH LARGE PAD INSIDE. REMAINS IN ISOLATION. DENIES PAIN. PERIAREA GETTING RED, PUT LOTION ON. SLEPT MOST OF NIGHT.
[2018-11-17 06:27] LABS: HEMATOCRIT 42.4 % (37.0-47.0); HEMOGLOBIN 14.5 gm/dL (12.0-15.0); MCH 29.9 pg (26.0-34.0); MCHC 34.3 g/dL (28.0-37.0); MCV 87.3 fL (80.0-100.0); RBC 4.86 mil/uL (4.20-5.00); RDW 14.3 % (10.5-14.5); WBC 10.6 thou/uL (4.0-11.0)
[2018-11-17 06:45] LABS: CALCIUM 8.4 mg/dL (8.5-10.1); MAGNESIUM 1.9 mg/dL (1.8-2.4); POTASSIUM 4.1 mmol/L (3.5-5.1)
[2018-11-17 09:00] VITALS: BP 175/84
--- NOTE | 2018-11-17 09:00 | NUR ---
ASSUMED PT CARE AT 0700. ASSESSMENT COMPLETED AND IS CHARTED. VSS. PT AWAKE, ALERT/ORIENTED X4. PT DENIES PAIN AT THIS TIME. STATES SHE IS HAVING SOME SHORTNESS OF BREATH. REPORTS SHE IS ON O2 AT 2.5L AT HOME. LUNGS ARE CLEAR TO AUSCULTATION. PT REPORTS SOME BURNING UPON URINATION. OTHERWISE NO NEW COMPLAINTS. WILL OBTAIN ORDER FOR UA AND CONTINUE CURRENT CARE.
[2018-11-17 09:29] VITALS: BP 141/86
[2018-11-17] MEDS ORDERED: ELIQUIS2.5 MG PO (09:36)
[2018-11-17] MEDS ORDERED: PREDNISONE 20 M20 M1 PO (09:37)
[2018-11-17] MEDS ORDERED: KEFLEX250 MG PO (09:39)
[2018-11-17 10:32] VITALS: BP 141/86
--- NOTE | 2018-11-17 11:35 | NUR ---
PATIENT TO DC TODAY BACK TO [facility]. DP CALLED TO ENSURE DELIVERY OF FAXED ORDERS AND LET THEM KNOW TIME FOR TRANSPORTATION, ALSO CALLED SON KARIN TO LET HIM KNOW TIME FOR HIS MOTHER TO BE PICKED UP TODAY TO GO BACK WHICH IS 1430 TO 1500.
[2018-11-17 11:52] LABS: URINE BILIRUBIN NEGATIVE (Negative); URINE BLOOD 3+ (Negative); URINE CLARITY CLEAR; URINE COLOR YELLOW; URINE GLUCOSE-RANDOM* NEGATIVE (Negative); URINE KETONES NEGATIVE (Negative); URINE LEUKOCYTES-REFLEX TRACE (Negative); URINE NITRITE-REFLEX NEGATIVE (Negative); URINE PROTEIN (DIPSTICK) NEGATIVE (Negative); URINE SPECIFIC GRAVITY 1.015 (1.005-1.035); URINE UROBILINOGEN 0.2 E.U./dl (0.2-1.0)
[2018-11-17 12:30] LABS: CASTS None Seen /LPF (None Seen); CRYSTALS None Seen /LPF (None Seen); SQUAMOUS 4-10 Moderate /LPF (0-3)
[2018-11-17 12:31] LABS: BACTERIA-REFLEX 1-9 Few /HPF (None Seen); URINE RBC >20 Many /HPF (0-2); URINE WBC-REFLEX 6-15 Few /HPF (0-5)
[2018-11-17 12:57] VITALS: BP 141/86
--- NOTE | 2018-11-17 13:43 | NUR ---
DISCHARGE NOTE: JENNY reviewed chart and spoke with nursing and attending physician. Pt is medically stable for discharge back to [facility]. JENNY met with pt at bedside to discuss discharge plan. Pt states she would like to use the therapy services at [facility] instead of having HH therapy. SW explained that she may have to go to the therapy gym for the services. Pt verbalized understanding and is agreeable. JENNY faxed discharge orders/summary to [facility]. JENNY notified intake at [facility] of pt not needing HH therapy. JENNY arranged w/c van transportation through [employer] for [phone]. JENNY discussed with Director of Case Mgmt and transportation authorized. conference planner notified pt's son. No additional SW needs identified at this time, but is available to assist should needs arise.
--- NOTE | 2018-11-17 13:59 | NUR ---
UA RESULTS BACK AND CALLED TO PHYSICIAN. OK TO DISCHARGE. IV REMOVED. CHANGED AND CLEANED PT AND ASSISTED WITH DRESSING. DISCHARGE INSTRUCTIONS GIVEN AND MEDS CALLED TO PHARMACY.
--- NOTE | 2018-11-17 14:49 | NUR ---
DISMISSED PT VIA WHEELCHAIR AND TRANSPORT SERVICES BACK TO [facility].
== END 2018-11-17 14:49 | disposition home or self-care (01) | DRG 682 ==
LOC: ER 09:22 → EROBS 11:26 → SICU 11:26 → 4E 12:25 → SICU 11-13 05:55
PROVIDERS: Emergency Medicine; Internal Medicine; ADMIT Hospitalist
PROC: 5A09357 Assistance with Respiratory Ventilation, Less than 24 Consecutive Hours, Continuous Positive Airway Pressure (ICD-10-PCS; principal; 2018-11-12)
DX: N17.9 Acute kidney failure, unspecified (principal); I26.99 Other pulmonary embolism without acute cor pulmonale; J18.9 Pneumonia, unspecified organism; I42.9 Cardiomyopathy, unspecified; I13.0 Hypertensive heart and chronic kidney disease with heart failure and stage 1 through stage 4 chronic kidney disease, or unspecified chronic kidney disease; N18.4 Chronic kidney disease, stage 4 (severe); Z66 Do not resuscitate; I48.91 Unspecified atrial fibrillation; E03.9 Hypothyroidism, unspecified; I50.9 Heart failure, unspecified; J44.9 Chronic obstructive pulmonary disease, unspecified; F32.9 Major depressive disorder, single episode, unspecified; G25.81 Restless legs syndrome; E86.0 Dehydration; K59.00 Constipation, unspecified; K64.9 Unspecified hemorrhoids; G47.33 Obstructive sleep apnea (adult) (pediatric); E11.42 Type 2 diabetes mellitus with diabetic polyneuropathy; I27.20 Pulmonary hypertension, unspecified; I34.0 Nonrheumatic mitral (valve) insufficiency; E11.22 Type 2 diabetes mellitus with diabetic chronic kidney disease; K21.9 Gastro-esophageal reflux disease without esophagitis; E53.8 Deficiency of other specified B group vitamins; N28.1 Cyst of kidney, acquired; K44.9 Diaphragmatic hernia without obstruction or gangrene; Z96.653 Presence of artificial knee joint, bilateral; Z99.3 Dependence on wheelchair; Z86.74 Personal history of sudden cardiac arrest; Z90.49 Acquired absence of other specified parts of digestive tract; Z90.710 Acquired absence of both cervix and uterus; Z98.42 Cataract extraction status, left eye; Z98.41 Cataract extraction status, right eye; Z79.51 Long term (current) use of inhaled steroids; Z79.899 Other long term (current) drug therapy; Z88.0 Allergy status to penicillin; Z88.2 Allergy status to sulfonamides; Z88.8 Allergy status to other drugs, medicaments and biological substances; Z88.1 Allergy status to other antibiotic agents; Z91.041 Radiographic dye allergy status; Z83.6 Family history of other diseases of the respiratory system
CPT/HCPCS: 10084; 15002

== ENCOUNTER 2018-11-29 11:33 | Inpatient (IN) | payer OTHER ==
[~2018-11-29] VITALS: Ht 160 cm; Wt 74.4 kg
[~2018-11-29 11:33] MED LIST changes: +BACTROBAN15 GM TRANSDERM; +PREDNISONE 20 M20 M1 PO; +TRAZODONE HCL100 MG PO; -TRAZODONE HCL50 MG PO
[2018-11-29 11:40] VITALS: BP 85/54
[2018-11-29 12:00] LABS: BE(vivo) 6.5 mmol/L (-2 to +3); HCO3 29.9 mmol/L (22.0-26.0); PCO2 38.3 mmHg (35.0-45.0); PO2 71.2 mmHg (80.0-100.0); sO2 95.7 % (92.0-98.0)
[2018-11-29 12:11] LABS: BASOPHILS 0.2 % (0.0-2.0); HEMATOCRIT 39.2 % (37.0-47.0); HEMOGLOBIN 12.8 gm/dL (12.0-15.0); LYMPHOCYTES 5.5 % (24.0-44.0); MCH 28.8 pg (26.0-34.0); MCHC 32.7 g/dL (28.0-37.0); MCV 88.1 fL (80.0-100.0); MONOCYTES 6.6 % (1.0-8.0); POLYS 87.7 % (36.0-66.0); RBC 4.45 mil/uL (4.20-5.00); RDW 14.4 % (10.5-14.5); WBC 11.5 thou/uL (4.0-11.0)
[2018-11-29 12:29] LABS: ANION GAP 7 mmol/L (7-16); BUN 31 mg/dL (7-18); CALCIUM 8.6 mg/dL (8.5-10.1); CHLORIDE 96 mmol/L (98-107); CO2 34 mmol/L (21-32); CREATININE 1.2 mg/dL (0.6-1.0); GLUCOSE 188 mg/dL (74-106); POTASSIUM 3.6 mmol/L (3.5-5.1); SODIUM 137 mmol/L (136-145)
[2018-11-29 12:34] LABS: ALBUMIN 2.6 g/dL (3.4-5.0); SGOT 13 U/L (15-37); SGPT 17 U/L (30-65); TOTAL BILIRUBIN 2.8 mg/dL (<0.1-1.0); TOTAL PROTEIN 6.1 g/dL (6.4-8.2); TROPONIN-I <0.06 ng/mL (<0.06)
[2018-11-29 12:46] LABS: PLATELET COUNT 85 thou/uL (150-400)
[2018-11-29 16:05] VITALS: BP 95/48
[2018-11-29 16:19] VITALS: BP 98/40
[2018-11-29 17:50] VITALS: BP 85/59
[2018-11-29] MEDS ORDERED: DILTIAZEM HCL90 MG PO (18:10)
[2018-11-29 18:16] LABS: BE(vivo) 6.8 mmol/L (-2 to +3); HCO3 30.4 mmol/L (22.0-26.0); PCO2 39.3 mmHg (35.0-45.0); PO2 83.7 mmHg (80.0-100.0); pH 7.506 (7.360-7.450); sO2 97.1 % (92.0-98.0)
[2018-11-29 19:41] VITALS: BP 97/74
[2018-11-30 00:52] VITALS: BP 105/30
[2018-11-30 03:51] LABS: HEMATOCRIT 32.5 % (37.0-47.0); MCH 29.6 pg (26.0-34.0); MCHC 33.7 g/dL (28.0-37.0); MCV 87.8 fL (80.0-100.0); RBC 3.7 mil/uL (4.20-5.00); RDW 14.7 % (10.5-14.5); WBC 7.2 thou/uL (4.0-11.0)
[2018-11-30 04:04] LABS: CREATININE 1.2 mg/dL (0.6-1.0); MAGNESIUM 1.5 mg/dL (1.8-2.4); POTASSIUM 3.3 mmol/L (3.5-5.1)
[2018-11-30 05:41] VITALS: BP 92/46
[2018-11-30 07:28] VITALS: BP 112/55
--- NOTE | 2018-11-30 07:41 | NUR ---
PT STATES SHE IS FEELING MUCH BETTER THAN WHEN SHE CAME IN, BP REMAIN ON LOW SIDE, RESPIRTATIONS 18 TO 20 AND SATING 97 TO 99% ON 3L/NC, PRN PAIN MED GIVEN FOR C/O FOOT PAIN, WILL CON'T TO MONITOR PER PPOC.
--- NOTE | 2018-11-30 09:16 | EKG ---
[address] [address] ELECTROCARDIOGRAM REPORT Name: EFFIE JENKINS Room #: 205-P ADM IN M.R.#: [id number] ������������������ Admission: 11/29/18 ������������������ Attend Phys: Julio C Kidd MD Discharge: ������������������ Date of : 29 Report #: [id number] ����������������������������������������������������������������� [id number] THIS REPORT FOR: //name// [facility] ED Test Date: 2018-11-29 Test Time: 11:44:02 Pat Name: EFFIE JENKINS Department: Room: [facility] Gender: F Video Editor: WAYLON : 1930 Requested By: Frances Casiano Order Number: [id number] MD: Ethan Hernandez Measurements Intervals [place] Rate: 82 P: LA: QRS: -84 QRSD: 154 T: 74 QT: 446 QTc: 521 Interpretive Statements Atrial fibrillation Frequent premature ventricular complexes RBBB and LAFB Compared to ECG 11/12/2018 09:26:10 Ventricular premature complex(es) now present Electronically Signed On 11-30-2018 9:15:53 ORTHOPEDIC SPECIALIST by Ethan Hernandez [email or web address] ��������������������������������������������� <ELECTRONICALLY SIGNED> ���������������������������������������� By: Ethan Hernandez MD, [facility] ��������������������������������������������� 11/30/18 0915 1144 1144 Ethan Hernandez MD, [facility] /EPI
[2018-11-30 10:59] VITALS: BP 95/48
[2018-11-30] MEDS ORDERED: PROTONIX40 M2 PO (15:00)
[2018-11-30 15:30] VITALS: BP 100/44
[2018-11-30 15:34] LABS: ABSOLUTE RETIC COUNT 0.0602 10^6/uL; HEMATOCRIT 35.5 % (37.0-47.0); HEMOGLOBIN 12.1 gm/dL (12.0-15.0); MCH 29.8 pg (26.0-34.0); MCV 87.6 fL (80.0-100.0); OBSERVED RETIC COUNT 1.48 % (0.6-2.6); RBC 4.06 mil/uL (4.20-5.00); RDW 14.6 % (10.5-14.5)
[2018-11-30 15:50] LABS: APTT 49.5 Seconds (24.5-32.8); D-DIMER 2.68 ug/mLFEU (0.19-0.50); INR 1.3
[2018-11-30 15:55] LABS: FIBRINOGEN 718.7 mg/dL (210-360)
--- NOTE | 2018-11-30 17:01 | NUR ---
FAXED CLINICAL UPDATE TO [facility]. PT RESIDES AT THE A.L. UPDATE RECEIVED. DCP TO FOLLOW.
--- NOTE | 2018-11-30 17:54 | NUR ---
ASSESSMENT DOCUMENTED. PT ALERT AND ORIENTED. RECEIVED PRN PAIN MED WITH PARTIAL RELIEF. RT TREATMENT GIVEN ORDERED. UP IN THE CHAIR THIS AM. SOB NOTED WITH ACTIVITY. FALL PRECAUTION ENFORCED. WILL CONTINUE TO MONITOR.
[2018-11-30 19:51] VITALS: BP 115/82
[2018-12-01 04:21] VITALS: BP 125/64
[2018-12-01 04:37] LABS: HEMATOCRIT 31.6 % (37.0-47.0); HEMOGLOBIN 10.8 gm/dL (12.0-15.0); MCHC 34.2 g/dL (28.0-37.0); MCV 87.6 fL (80.0-100.0); RBC 3.61 mil/uL (4.20-5.00); RDW 14.4 % (10.5-14.5); WBC 8.2 thou/uL (4.0-11.0)
[2018-12-01 04:42] LABS: CALCIUM 8.6 mg/dL (8.5-10.1); CREATININE 1.4 mg/dL (0.6-1.0); MAGNESIUM 2.2 mg/dL (1.8-2.4); POTASSIUM 5.1 mmol/L (3.5-5.1)
--- NOTE | 2018-12-01 05:46 | NUR ---
ASSUMED PT CARE AT 1900 WITH NO SIGN OF DISTRESS NOTED IN PT. PT IS ALERT AND ORIENTED WITH NO SIGN OF DISTRESS NOTED. PT IS LAYING IN BED. PT IS ONXYGEN, PT IS STILL IN AFIB, PHYSICIAN AWARE. ASSESSMENT CHARTED. SCHEDULED MEDS ADMINISTERED TO PT. NO SIGN OF DISTRESS NOTED. DENIES ANY FURTHER NEEDS AT THIS TIME.
[2018-12-01 07:43] VITALS: BP 118/51
--- NOTE | 2018-12-01 09:05 | NUR ---
WOUND CONSULT; ASSESSMENT OF THIS PATIENT'S SKIN REVEALS NO WOUNDS AND ONLY SCARRED AREAS OF PRIOR INJURY, BILAT ISCHIAL TUBEROSITY AND COCCYX. ZGUARD IS IN USE. PATIENT IS ALERT AND ORIENTED EATING BREAKFAST AND COMMUNICATES WELL. RECOMMENDATIONS; 1-CONTINUE ZGAURD 2-CONTINUE Q2H TURNING REGIMEN 3- WOUND CARE WILL BE SIGNING OFF AT THIS TIME, RECONSULT IF NEEDED.
--- NOTE | 2018-12-01 10:31 | NUR ---
Met with patient who resides in Assisted Living at [facility]. She has a walker to assist with ambulation. She has home oxygen via [facility]. She has HH via [facility]. She reports her plan for home to her assisted living apt. Therapy evals in process, patient may need post acute care.
[2018-12-01 11:21] VITALS: BP 111/59
--- NOTE | 2018-12-01 13:45 | NUR ---
VASCULAR ACCESS TEAM CONSULTED FOR POSSIBLE ML. UPON REVIEW OF PT'S LABS,MEDS AND HISTORY. PT STATES HAD SMALL BLOOD CLOT IN LUNG 2 WEEKS AGO AND IN 2011. SPOKE WITH PT'S DAUGHTER TIM WHO IS A RN IN [place], DISCUSSED INCREASED RISK OF DVT OR INFILTRATION OF VANCO IN DEEP IV-MIDLINE. PT HAS ADEQUATE PIV'S SO PT /DAUGHTER DECIDED NO ON MIDLINE.
--- NOTE | 2018-12-01 17:43 | NUR ---
ASSESSMENT CHARTED. VSS. RECEIVED PRN PAIN MED FOR BACK PAIN WITH PARTIAL RELIEF. SOB NOTED WITH ACTIVITY. RT TREATMENT PROVIDED ORDERED. EVALUATED BY SPEECH. ORDERS NOTED. CONTACT PRECAUTION ENFORCED. WILL CONTINUE TO MONITOR.
--- NOTE | 2018-12-01 19:18 | HC ---
[facility] [place] [address] CONSULTATION Name: EFFIE JENKINS Room #: 205-P ADM IN M.R.#: [id number] Admission: 11/29/18 ������������������ Attend Phys: Julio C Kidd MD Discharge: ������������������ Date of : 29 Report #: [id number] THIS REPORT FOR: //name// CC: Julio C Calderon PULMONARY CONSULTATION REFERRING PHYSICIAN: Julio C Kidd M.D. REASON FOR REFERRAL: Hypoxia. HISTORY OF PRESENT ILLNESS: The patient is an 88-year-old white female with multiple medical problems, who presents to the Emergency Department with progressive dyspnea. Chest x-ray revealed bibasilar infiltrates. A Pulmonary consultation was requested. The patient has had numerous hospitalizations in the past, last one being in 09/2018. She was doing fairly well until for the past few days, she has had increasing dyspnea. She denies any chest pain, night sweats or chills or productive cough. No nausea, vomiting or diarrhea. Chest x-ray, as mentioned above, shows bibasilar infiltrates, greater in the right than the left, elevated left hemidiaphragm. CT chest reviewed, showing bibasilar infiltrates and atelectasis. PAST MEDICAL HISTORY: Notable for coronary artery disease; nonischemic cardiomyopathy, ejection fraction of 25% to 30%; paroxysmal atrial fibrillation; COPD, severity undefined; SOBEIDA, on CPAP; chronic kidney disease; hypertension; history of pulmonary embolus; hypothyroidism; depression; restless leg syndrome; hiatal hernia; diabetes mellitus type 2 and past history of cardiac arrests, on chronic O2. PAST SURGICAL HISTORY: Includes cholecystectomy, lumbar spine surgery, appendectomy, left shoulder surgery, right hip surgery, hysterectomy, bilateral knee replacement, bladder surgery and right inguinal herniorrhaphy. ALLERGIES: PENICILLIN, SULFA AND IODINE; REACTIONS UNSPECIFIED. MEDICATIONS: Home medication list is reviewed. This includes magnesium supplements, Eliquis, prednisone pulse dose recently along with recent course of antibiotics, Lasix, Advair 100/50 mcg 1 puff twice a day, , iron supplements, calcium supplements, diltiazem, Desyrel, lansoprazole, Spiriva 1 capsule once a day, MiraLax, Neurontin, potassium supplements and Cymbalta. FAMILY HISTORY: Mother . She had a history of pneumonia. Father at the age of 81. [address] [address] CONSULTATION Name: EFFIE JENKINS Room #: 205-P [facility] IN M.R.#: [id number] Admission: 11/29/18 ������������������ Attend Phys: Julio C Kidd MD Discharge: ������������������ Date of : 29 Report #: [id number] SOCIAL HISTORY: She is and has 4 children. Denies any past tobacco or alcohol use. She resides at an assisted living. REVIEW OF SYSTEMS: As mentioned above; otherwise, 10-point system review negative. PHYSICAL EXAMINATION: GENERAL: On examination, she is awake, alert, in no distress. VITAL SIGNS: Temperature is 98.2 degrees Fahrenheit, pulse is 60, respiratory rate is 16, blood pressure 100/44 mmHg and saturation 98%. HEENT: Normocephalic, atraumatic. NECK: Supple, without lymphadenopathy or thyromegaly. CHEST: Breath sounds are fair bilaterally. Decreased in the bases, few scattered crackles at the bases. No rales. CARDIOVASCULAR: Irregular rhythm. No murmurs or gallops. BREAST EXAMINATION: Deferred. ABDOMEN: Soft, nontender. No organomegaly or masses felt. GENITOURINARY: Deferred. RECTAL: Deferred. EXTREMITIES: Trace bilateral lower extremity edema. Otherwise, no cyanosis or clubbing. LABORATORY DATA: Chest x-ray and chest CT, as mentioned above. Procalcitonin level is 0.4. Electrolytes: Sodium 1.2, otherwise unremarkable. WBC 8000, hemoglobin 12.1 and platelets 82,000. No evidence of bandemia. Arterial blood gas reveals pH of 7.50, pCO2 of 39 and pO2 83 on 4 liters of O2. IMPRESSION: 1. [id number]-bg-[id number] hypoxic respiratory failure, probably related to pneumonia and atelectasis. 2. Bibasilar infiltrates, probable pneumonia. She was last hospitalized in September. We will need to consider and cover for nosocomial infections. 3. Bibasilar atelectasis. Chest CT and chest x-ray shows left diaphragmatic weakness, etiology of this is unclear, but likely idiopathic. 4. History of pulmonary embolus, had been currently on Eliquis. 5. Permanent atrial fibrillation, rate controlled. 6. Chronic kidney disease. 7. Thrombocytopenia. 8. Probable heart failure. 9. Obstructive sleep apnea, on CPAP. RECOMMENDATIONS: We would treat for presumed pneumonia. We would tailor antibiotics to cover for nosocomial infections. Chest physiotherapy for avoiding bibasilar atelectasis. [facility] [address] [place] [address] CONSULTATION Name: EFFIE JENKINS Room #: 205-P ADM IN M.R.#: [id number] Admission: 11/29/18 ������������������ Attend Phys: Julio C Kidd MD Discharge: ������������������ Date of : 29 Report #: [id number] Pulmonary infarction from past pulmonary embolus is felt to be less likely. DVT and GI prophylaxis will be beneficial. Thank you for this consultation. ��������������������������������������������� <ELECTRONICALLY SIGNED> ���������������������������������������� By: Gianni Dominguez MD ��������������������������������������������� 12/01/18 1918 1717 0156 Gianni Dominguez MD /nt
[2018-12-01 20:35] VITALS: BP 106/57
[2018-12-02] VITALS (7 sets, daily range): BP systolic 102–138; BP diastolic 55–87
[2018-12-02 03:07] LABS: GLYCOHEMOGLOBIN (HGB A1C) 5.9 % (4.8-5.6)
--- NOTE | 2018-12-02 03:12 | NUR ---
ASSUMED PT CARE AT 1900. PT A/OX4, VITAL SIGNS STABLE, ASSESSMENT CHARTED. NO COMPLAINTS OF PAIN/CHEST PAIN. PT ON 3L O2 WHEN AWAKE, CPAP AT HS. NO EPISODES OF SOA. PT RESTED WELL THROUGH THE NIGHT. PROGRESSING TOWARD PLAN OF CARE. WILL CONTINUE TO MONITOR.
[2018-12-02 03:57] LABS: CREATININE 1.4 mg/dL (0.6-1.0); MAGNESIUM 2.3 mg/dL (1.8-2.4)
[2018-12-02 04:13] LABS: POTASSIUM 5.2 mmol/L (3.5-5.1)
[2018-12-02 04:15] LABS: HEMATOCRIT 31.4 % (37.0-47.0); HEMOGLOBIN 10.4 gm/dL (12.0-15.0); MCH 29.6 pg (26.0-34.0); MCHC 33.3 g/dL (28.0-37.0); MCV 88.9 fL (80.0-100.0); RBC 3.53 mil/uL (4.20-5.00); RDW 14.4 % (10.5-14.5); WBC 7.8 thou/uL (4.0-11.0)
--- NOTE | 2018-12-02 08:46 | HC ---
[facility] [place] [address] CONSULTATION Name: EFFIE JENKINS Room #: 205-P ADM IN M.R.#: [id number] Admission: 11/29/18 ������������������ Attend Phys: Julio C Kidd MD Discharge: ������������������ Date of : 29 Report #: [id number] THIS REPORT FOR: //name// CC: Julio C Calderon DATE OF SERVICE: 11/30/2018 TYPE OF REPORT: Infectious diseases consultation. REASON FOR CONSULTATION: I was asked to evaluate concerning basilar infiltrates. HISTORY OF PRESENT ILLNESS: The patient was an 88-year old recently hospitalized on 11/13/2018 where she was diagnosed with CHF, pneumonia and PE. Treated with antibiotics, corticosteroids and anticoagulation. Discharged on November 17. Over the last several days, she noticed increased shortness of breath with occasional cough. No sputum production. Denies any fever, chills or sweats. Presents to the Emergency Room and found to have basilar infiltrates. Placed on IV antibiotic therapy with vancomycin and cefepime. She has also noted that on her CBC: Her platelet count was 68,000 where it was normal during her last hospital stay. She reports no trauma. No syncope. Denies any chest pain or discomfort. She has had no hemoptysis. No purulent sputum production. She does have underlying atrial fibrillation. She has been around no other ill persons. REVIEW OF SYSTEMS: Denies any skin, lymph, GI or complaints. She did note that she has had some loose stools yesterday but that is resolved. No other neurologic or psychiatric issues. Denies any hematologic or lymphatic issues other than what is noted above with her pulmonary embolus. A 10-point review of systems was negative other than described above. ALLERGIES: SULFA, FOSAMAX, IODINE, LEVAQUIN and PENICILLIN, although does tolerate cephalosporins. MEDICATIONS: As noted on her DEC, now on vancomycin and cefepime. PAST MEDICAL HISTORY: Nonischemic cardiomyopathy, atrial fibrillation, obstructive sleep apnea, pulmonary hypertension, diabetes, COPD, degenerative joint disease, carotid artery stenosis with renal insufficiency, congestive heart failure, chronic kidney disease, DVT and PE, cataract surgery, cholecystectomy, herniorrhaphy, hysterectomy, total hip arthroplasties, back surgery, cholecystectomy, appendectomy, rotator cuff surgery and cardiomyopathy. FAMILY HISTORY: Noncontributory. [address] [address] CONSULTATION Name: EFFIE JENKINS Room #: 205-P [facility] IN M.R.#: [id number] Admission: 11/29/18 ������������������ Attend Phys: Julio C Kidd MD Discharge: ������������������ Date of : 29 Report #: [id number] SOCIAL HISTORY: Nonsmoker. No significant alcohol intake, currently lives in a long-term. PHYSICAL EXAMINATION: VITAL SIGNS: Afebrile and hemodynamically stable. GENERAL: She was alert and she was conversant. She was in no acute distress, on 3 liters of oxygen per nasal cannula. She did have dentures. No oral lesions noted, otherwise. HEENT: Eyes without scleral icterus. NECK: Supple, with no thyromegaly or mass. SKIN: Without decubitus or rash. No palpable adenopathy. LUNGS: With crackles in the bases bilaterally. No consolidation. HEART: Regular, without murmur, gallop or rub. ABDOMEN: Soft and nontender with no hepatosplenomegaly or mass. GENITORECTAL: Not performed. EXTREMITIES: Without cyanosis, clubbing or lesion. She did have 1+ peripheral edema in her lower extremities. NEUROLOGICAL: Cranial nerves were intact. Strength in upper and lower extremities was symmetric and normal. Sensation was intact to touch in the upper and lower extremities. Mood was normal. LABORATORY STUDIES: Sodium 139, potassium 3.3 AND bicarbonate of 1.2. Bilirubin 2.8. Liver function tests normal otherwise. Hemoglobin 11; platelet count 68,000 and white count 7.2. Procalcitonin 0.4. BNP 7105. Influenza antigen screen negative. RADIOLOGICAL DATA: CT scan of the chest showed bilateral lower lobe infiltrates consistent with pneumonia. Also, note air-fluid level within the ectatic esophagus. IMPRESSION: An 88-year old with bilateral pulmonary infiltrates that have progressed since her last hospital stay 2 weeks ago. I would be concerned about aspiration in this situation, although not classic presentation for such. Other consideration would be congestive heart failure or exacerbation of her chronic obstructive pulmonary disease. I am concerned that she does have abnormal esophageal findings on CAT scan. She does have atrial fibrillation and has had a recent pulmonary embolus. The imaging studies did not appear to show evidence of new embolus, although this was done without contrast. Also, has evidence of thrombocytopenia, etiology of which is yet to be determined. RECOMMENDATIONS: We will continue current IV antibiotic therapy. Obtain sputum culture, MRSA screen. We would also consider GI evaluation and possible esophagram to further assess her esophagus and swallowing mechanism. She will [facility] [address] [facility] [place] [address] CONSULTATION Name: EFFIE JENKINS Room #: 205-P ADM IN M.R.#: [id number] Admission: 11/29/18 ������������������ Attend Phys: Julio C Kidd MD Discharge: ������������������ Date of : 29 Report #: [id number] continue with anticoagulation per recommendations Cardiovascular Medicine. I have discussed with attending. ��������������������������������������������� <ELECTRONICALLY SIGNED> ���������������������������������������� By: Manuel Castillo MD ��������������������������������������������� 12/02/18 0846 1859 0900 Manuel Castillo MD /nt
--- NOTE | 2018-12-02 11:46 | HC ---
[facility] [place] [address] CONSULTATION Name: EFFIE JENKINS Room #: 205-P ADM IN M.R.#: [id number] Admission: 11/29/18 ������������������ Attend Phys: Julio C Kidd MD Discharge: ������������������ Date of : 28 Report #: [id number] THIS REPORT FOR: //name// CC: Julio C Calderon DATE OF SERVICE: 12/01/2018 HISTORY OF PRESENT ILLNESS: The patient was readmitted to [facility] with complaints of worsening shortness of breath and hypoxic respiratory failure. She was noted to have thrombocytopenia on her admission CBC. She does have some bruising, but was recently placed on Eliquis for a pulmonary embolus discovered during her last hospitalization along with atrial fibrillation. She denies any nose bleeding or blood in urine or stool. PAST MEDICAL HISTORY: Significant for previous cardiomyopathy. She has had congestive heart failure along with atrial fib and rapid ventricular response. She has had diabetes along with chronic renal insufficiency. ALLERGIES: ALLERGIC TO SULFA, IODINE, LEVOFLOXACIN, PENICILLINS AND ALENDRONATE. MEDICATIONS: As listed on her MFR. SOCIAL HISTORY: Negative for tobacco. She does drink socially. FAMILY HISTORY: Negative for coagulopathy or cancer. REVIEW OF SYSTEMS: Negative for nose bleeding or known prior thrombocytopenia. PHYSICAL EXAMINATION: GENERAL: Shows her to be alert. MOUTH: Clear. CHEST: Shows decreased breath sounds at the bases. CARDIOVASCULAR: Atrial fibrillation. ABDOMEN: Revealed no palpable spleen. NEUROLOGIC: No focal localizing signs. PSYCHIATRIC: Not agitated or confused. EXTREMITIES: Show no edema. SKIN: Shows scattered ecchymoses. 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 LYMPHATICS: Revealed no suspicious lymphadenopathy. LABORATORY DATA: Showed platelet count of 68,000 with a white count of 7200 and 32.5% hematocrit. Her creatinine was 1.2. [address] [address] CONSULTATION Name: EFFIE JENKINS Room #: 205-P ADM IN ..#: [id number] Admission: 11/29/18 ������������������ Attend Phys: Julio C Kidd MD Discharge: ������������������ Date of : 28 Report #: [id number] ASSESSMENT: Mild thrombocytopenia. PLAN: The patient has been placed on antibiotics for suspected pneumonia and this obviously could be the cause of her current thrombocytopenia. I see nothing to suggest DIC or TTP as the cause, but I have ordered studies for further evaluation. Since she is not overtly clinically bleeding at this time, we can follow expectantly with serial blood work. On earlier CBC, she was noted to have early white cell forms and we will review her peripheral blood smear in addition. Thanks for allowing us to see her in consultation and asking us to participate in her care. ��������������������������������������������� <ELECTRONICALLY SIGNED> ���������������������������������������� By: Michell Blanco MD ��������������������������������������������� 12/02/18 1146 [id number] [id number] MD karishma Peguero
--- NOTE | 2018-12-02 16:51 | NUR ---
FAXED REFERRAL TO [facility]. SPOKE WITH DELVIS IN ADM. SHE RECEIVED REFERRAL AND WILL REVIEW. DCP TO FOLLOW.
--- NOTE | 2018-12-02 16:58 | NUR ---
ASSESSMENT CHARTED. PT ALERT AND ORIENTED. VSS. UP IN THE CHAIR THIS AM. HAD SWALLOW VIDEO STUDY. SOB NOTED WITH ACTIVITY. REDNESS NOTED ON THE LEFT EYE. DR BRINK NOTIFIED. ORDERS NOTED. PT PROGRESSING SLOWLY TOWARD DISCHARGE GOAL.
--- NOTE | 2018-12-02 17:16 | NUR ---
Spoke with patient regarding dc planning and post acute care. patient strongly wants to return home. Therapy evals faxed to [facility]. Sp with Agustin from [facility] and son. [facility] recommends post acute care as well. Son in agreement with plan. referral to [facility] to review.
[2018-12-03 00:21] VITALS: BP 122/84
--- NOTE | 2018-12-03 03:45 | NUR ---
ASSUMED PT CARE AT 1900. PT A/OX4, VITAL SIGNS STABLE, ASSESSMENT CHARTED. NO COMPLAINTS OF PAIN/CHEST PAIN. ON 3L O2 WHEN AWAKE. PT USED CPAP BRIEFLY WHEN ASLEEP. PT COMPLAINED OF BEING A LITTLE ANXIOUS. PLUMBER GASFITTER WAS CONTACTED, XANAX PRESCRIBED. PT MORE RELAXED AFTER. PT RESTED WELL FOR THE REST OF THE NIGHT. CONTACT PRECAUTIONS MAINTINED. PROGRESSING TOWARD PLAN OF CARE. WILL CONTINUE TO MONITOR.
[2018-12-03 04:32] LABS: HEMATOCRIT 32.2 % (37.0-47.0); HEMOGLOBIN 10.7 gm/dL (12.0-15.0); MCH 29.1 pg (26.0-34.0); MCHC 33.2 g/dL (28.0-37.0); MCV 87.7 fL (80.0-100.0); RBC 3.68 mil/uL (4.20-5.00); RDW 14.2 % (10.5-14.5); WBC 6.4 thou/uL (4.0-11.0)
[2018-12-03 04:41] LABS: CREATININE 1.5 mg/dL (0.6-1.0); POTASSIUM 4.5 mmol/L (3.5-5.1)
[2018-12-03 07:41] VITALS: BP 126/98
[2018-12-03 09:35] LABS: BE(vivo) 2.9 mmol/L (-2 to +3); HCO3 26.5 mmol/L (22.0-26.0); PCO2 37.2 mmHg (35.0-45.0); PO2 80.2 mmHg (80.0-100.0); pH 7.471 (7.360-7.450); sO2 96.5 % (92.0-98.0)
--- NOTE | 2018-12-03 10:20 | NUR ---
SPOKE WITH DELVIS IN ADM. AT [facility] THEY CAN ACCEPT PT. AND WILL SUBMIT FOR AUTH. FOR POSS. DC TODAY. DCP TO FOLLOW.
[2018-12-03 11:46] LABS: ABSOLUTE NEUTROPHILS 6.1 thou/uL (1.4-8.2); BASOPHILS 0.1 % (0.0-2.0); HEMATOCRIT 31.1 % (37.0-47.0); HEMOGLOBIN 10.9 gm/dL (12.0-15.0); LYMPHOCYTES 3.2 % (24.0-44.0); MCH 30.5 pg (26.0-34.0); MCHC 35.1 g/dL (28.0-37.0); MCV 86.9 fL (80.0-100.0); MONOCYTES 2.5 % (1.0-8.0); PLATELET COUNT 102 thou/uL (150-400); POLYS 94.2 % (36.0-66.0); RBC 3.59 mil/uL (4.20-5.00); RDW 14.3 % (10.5-14.5); WBC 6.5 thou/uL (4.0-11.0)
[2018-12-03 11:47] LABS: URINE BILIRUBIN NEGATIVE (Negative); URINE BLOOD NEGATIVE (Negative); URINE CLARITY CLEAR; URINE COLOR YELLOW; URINE GLUCOSE-RANDOM* NEGATIVE (Negative); URINE KETONES NEGATIVE (Negative); URINE LEUKOCYTES-REFLEX TRACE (Negative); URINE NITRITE-REFLEX NEGATIVE (Negative); URINE PROTEIN (DIPSTICK) NEGATIVE (Negative); URINE SPECIFIC GRAVITY 1.015 (1.005-1.035); URINE UROBILINOGEN 0.2 E.U./dl (0.2-1.0)
[2018-12-03 11:55] VITALS: BP 106/42
--- NOTE | 2018-12-03 12:13 | NUR ---
[facility] has ins auth and can accept the pt if dc ready. No dc anticipated today due to breathing issues. She has her own cpap at home and did not like the one provided by the hospital. Will follow.
[2018-12-03 16:45] VITALS: BP 106/47
--- NOTE | 2018-12-03 19:03 | NUR ---
PT APPEARED VERY SHORT OF AIR THIS MORN AND ABG ORDERED BUT WAS OK EXCEPT LACTATE 3.03..SEEMS TO BE BREATHING BETTER THIS AFTERNOON.
[2018-12-03 19:34] VITALS: BP 160/43
--- NOTE | 2018-12-04 04:13 | NUR ---
ASSUMED PT CARE AT 1900. PT A/OX4, ANXIOUS. XANAX GIVEN. VITAL SIGNS STABLE, ASSESSMENT CHARTED. NO COMPLAINTS OF PAIN. NO COMPLAINTS OF CHEST PAIN. PT RESTED WELL THROUGH THE NIGHT. PROGRESSING TOWARD PLAN OF CARE. WILL CONTINUE TO MONITOR.
[2018-12-04 05:07] LABS: DIRECT BILIRUBIN < 0.1 mg/dL (<0.1-0.3); LIPASE 192 U/L (73-393); TOTAL BILIRUBIN 0.6 mg/dL (<0.1-1.0)
[2018-12-04 06:24] VITALS: BP 132/60
[2018-12-04 07:30] VITALS: BP 126/57
[2018-12-04 11:25] VITALS: BP 93/42
[2018-12-04 15:40] VITALS: BP 123/65
--- NOTE | 2018-12-04 16:26 | NUR ---
IF PT. SHOULD DISCHARGE OVER WEEKEND PLEASE FAX DC ORDERS/SUMMARY TO [facility] [phone] AND CALL REPORT TO [phone] AND TO SET UP TRANSPORTATION.
--- NOTE | 2018-12-04 16:46 | NUR ---
PT CARE ASSUMED APPROX 0700. PT ALERT AND ORIENTED X4 WITH MILD FORGETFULNESS. DENIES PAIN AND SOA. VSS. BS ELEVATED AND SSI USED TO CONTROL. ISOLATION MAINTAINED. IV ABT REMAINS TO POC. PT APPEARS WEAKER THAN DOCUMENTED BASELINE. ALSO MORE FATIGUED. PULM WROTE ORDERS WHEN ROUNDED. TURNING PT Q2HRS. EXTERNAL FEMALE CATH IN PLACE. NO DISTRESS NOTED THIS SHIFT.
[2018-12-04 19:02] LABS: BE(vivo) 7.4 mmol/L (-2 to +3); HCO3 31.3 mmol/L (22.0-26.0); PCO2 41.5 mmHg (35.0-45.0); PO2 102.5 mmHg (80.0-100.0); pH 7.496 (7.360-7.450); sO2 98.1 % (92.0-98.0)
[2018-12-04 19:15] LABS: ANION GAP 7 mmol/L (7-16); BUN 52 mg/dL (7-18); CALCIUM 8.7 mg/dL (8.5-10.1); CHLORIDE 99 mmol/L (98-107); CO2 30 mmol/L (21-32); CREATININE 1.5 mg/dL (0.6-1.0); GLUCOSE 250 mg/dL (74-106); MAGNESIUM 1.8 mg/dL (1.8-2.4); POTASSIUM 3.7 mmol/L (3.5-5.1); SODIUM 136 mmol/L (136-145); TROPONIN-I <0.06 ng/mL (<0.06)
[2018-12-04 20:07] VITALS: BP 120/52
[2018-12-05 04:23] VITALS: BP 113/52
--- NOTE | 2018-12-05 05:14 | NUR ---
PT. AOX4; SLEEPING DURING SHIFT CHANGE; ABLE TO HAVE MEDICATION WITH PUDIN; C/O AROUND MIDNIGHT; PRN PAIN MEDICATION GIVEN; ABLE TO REST MOST OF THE NIGHT; EARLY NIGHT LACTIC ACID ELEVATED; THERAPEUTIC RIDING INSTRUCTOR NOTIFIED; NEW ORDER TAKEN; C-PAP USED DURING THE NIGHT; REPOSITIONED Q2H; ASSESSMENT CHARGED; FOLLOWING POC; WILL PASS ON REPORT.
[2018-12-05 07:45] VITALS: BP 147/66
[2018-12-05 11:22] LABS: MCH 29.9 pg (26.0-34.0); MCHC 34.2 g/dL (28.0-37.0); MCV 87.3 fL (80.0-100.0); RBC 4.01 mil/uL (4.20-5.00); RDW 14.2 % (10.5-14.5); WBC 6.7 thou/uL (4.0-11.0)
[2018-12-05 11:26] LABS: CALCIUM 8.5 mg/dL (8.5-10.1); CREATININE 1.2 mg/dL (0.6-1.0)
[2018-12-05 11:45] VITALS: BP 116/58
[2018-12-05 16:10] VITALS: BP 106/41
--- NOTE | 2018-12-05 16:31 | NUR ---
PT CARE ASSUMED APPROX 0700. PT ALERT AND ORIENTED X4. DENIES PAIN AND SOA. VSS. BS ELEVATED. SSI USED TO CONTROL. PT IN CHAIR MOST OF SHIFT. MOD ASSIST RETURN TO BED. INCONT OF URINE. CLEANED UP FROM CHAIR AND EXTERNAL CATH REPLACED ONCE BACK TO BED. FAMILY AT BEDSIDE THIS MORNING AND GIVEN UPDATE. DENIED QUESTIONS OR CONCERNS. IV ABT REMAIN TO POC. NO DISTRESS NOTED.
--- NOTE | 2018-12-05 19:06 | NUR ---
PT BRADYCARDIC. DR BRINK NOTIFIED. NOC NURSE WILL TAKE ORDERS.
[2018-12-05 20:04] VITALS: BP 111/50
[2018-12-06 04:45] VITALS: BP 131/63
[2018-12-06 05:09] VITALS: BP 136/59
[2018-12-06 07:35] VITALS: BP 105/60
--- NOTE | 2018-12-06 07:43 | NUR ---
PT. A0X4; C/O PAIN EARLY ON THE NIGHT; PRN PAIN MEDICATION GIVEN; C/O CONSTIPATION; PRN MEDICATION GIVEN; NO BM DURING THE NIGHT; HR ABOVE 60'S; ABLE TO REST DURING THE NIGHT WITH EYES CLOSE; VS WNL; ASSESSMENT CHARGED; FOLLOWING POC; PASSED ON REPORT.
[2018-12-06 11:15] VITALS: BP 126/42
[2018-12-06 15:20] VITALS: BP 111/55
--- NOTE | 2018-12-06 18:09 | NUR ---
PT CARE ASSUMED APPROX 0700. PT ALERT AND ORIENTED X4 WITH FORGETFULNESS. DENIES PAIN AND SOA. VSS. REFUSED TRANSFER TO CHAIR. FAMILY RECEIVED CLINICAL UPDATE AND DENIED QUESTIONS OR CONCERNS. BS ELEVATED. SSI USED TO CONTROL. IV STEROIDS DC'D. TURNING PT Q2HRS AND PRN. EXTERNAL FEMALE CATH IN PLACE. BARRIER CREAM AND ANTIFUNGAL POWDER APPLIED. MIRALAX GIVEN FOR CONSTIPATION. WILL F/U FOR RESULTS. IV ABT REMAIN TO POC. APPETITE GOOD. NO ACUTE CLINICAL CHANGES NOTED THIS SHIFT.
[2018-12-06 19:41] VITALS: BP 110/80
--- NOTE | 2018-12-06 19:47 | EKG ---
[address] [address] ELECTROCARDIOGRAM REPORT Name: EFFIE JENKINS Room #: 205- ADM IN M.R.#: [id number] ������������������ Admission: 11/29/18 ������������������ Attend Phys: Julio C Kidd MD Discharge: ������������������ Date of : 28 Report #: [id number] ����������������������������������������������������������������� [id number] THIS REPORT FOR: //name// [facility] Test Date: 2018-12-05 Test Time: 13:01:40 Pat Name: EFFIE JENKINS Department: Room: 205 P Gender: F [employer] Offbearer: immanuel : 1930 Requested By: Julio C Kidd Order Number: [id number] MD: Yang Moura Measurements Intervals [place] Rate: 65 P: [place]: QRS: -71 QRSD: 161 T: 34 QT: 469 QTc: 488 Interpretive Statements Atrial fibrillation RBBB and LAFB Nonspecific ST-T wave changes Compared to ECG 11/29/2018 11:44:02 Ventricular premature complex(es) no longer present Electronically Signed On 12-06-2018 19:47:12 [employer] by Yang Moura [email or web address] ��������������������������������������������� <ELECTRONICALLY SIGNED> ���������������������������������������� By: Yang Moura MD ��������������������������������������������� 12/06/18 1947 1301 1301 Yang Moura MD /EPI
--- NOTE | 2018-12-07 03:46 | NUR ---
ASSESSMENT DOCUMENTED.PT BEEN RESTING IN NO ACUTE DISTRESS.A/OX4.VSS.AFIB W/SVR ON MONITOR.PAIN MEDS GIVEN FOR APOORVA HIPS PAIN WITH RELIEF.ON CPAP THROUGH THE NIGHT,SATS ADEQUATE.INCONTINENT OF BLADDER,PERICARE GIVEN.PT DENIES ANY NEEDS AT THIS TIME.PT TO HAVE BARIUM SWALLOW STUDY THIS AM.WILL CONT TO MONITOR PER POC.
[2018-12-07 04:24] VITALS: BP 115/36
[2018-12-07 07:25] VITALS: BP 130/48
--- NOTE | 2018-12-07 10:27 | NUR ---
FAXED CLINICAL UPDATE TO [facility] SPOKE WITH ADM. [place] AND PT. WILL NOT HAVE TO HAVE NEW AUTH. DCP TO FOLLOW.
[2018-12-07 11:55] VITALS: BP 134/69
[2018-12-07 12:29] VITALS: BP 134/69
[2018-12-07] MEDS ORDERED: DOXYCYCLINE HYC50 MG PO (13:36)
--- NOTE | 2018-12-07 14:41 | NUR ---
PT. DISCHARGING TODAY TO [facility]. FAXED DC ORDERS/SUMMARY TO FACILITY AND SPOKE WITH DELVIS IN ADM. SHE RECEIVED DC ORDERS AND ARRANGED TRANSPORT WC [facility] AT 1530 TODAY. NOTIFIED SON (NORM) OF DISCHARGE AND TRANSPORT TIME. UNIT NOTIFIED AND CHART COPY PER US. RN TO CALL REPORT TO [phone].
--- NOTE | 2018-12-07 16:08 | NUR ---
ASSUMED CARE OF PT AT SHIFT CHANGE. ASSESSMENTS CHARTED. MEDS GIVEN PER DEC. PT ALERT AND ORIENTED, C/O HIP PAIN, DID NOT WANT PAIN PILL. DENIES CHEST PAIN. NO S/SX OF CARDIAC OR RESP DISTRESS NOTED. O2 SATS WNL ON 3 L O2. PT HAD BARIUM SWALLOW PROCEDURE TODAY REVEALING HIATL HERNIA, PLAN IS FOR EGD WHEN RESP STATUS IMPROVED. DC ORDERS ACKNOWLEDGED AND IMPLEMENTED. PT LEFT UNIT AT APPROX 1545 BY [facility] TRANSPORT. TELE REMOVED, IV REMOVED, PT LEFT UNIT WITH ALL BELONGINGS.
== END 2018-12-07 15:54 | DRG 177 ==
LOC: ER 11:33 → EROBS 15:03 → 2N 15:03
PROVIDERS: Family Medicine; Internal Medicine Gastroenterology; Internal Medicine Hematology & Oncology; Physician Assistant; ADMIT Internal Medicine
PROC: 5A09357 Assistance with Respiratory Ventilation, Less than 24 Consecutive Hours, Continuous Positive Airway Pressure (ICD-10-PCS; principal; 2018-11-29)
PROC: 5A09357 Assistance with Respiratory Ventilation, Less than 24 Consecutive Hours, Continuous Positive Airway Pressure (ICD-10-PCS; 2018-12-02)
PROC: 5A09357 Assistance with Respiratory Ventilation, Less than 24 Consecutive Hours, Continuous Positive Airway Pressure (ICD-10-PCS; 2018-12-04)
PROC: 5A09357 Assistance with Respiratory Ventilation, Less than 24 Consecutive Hours, Continuous Positive Airway Pressure (ICD-10-PCS; 2018-12-05)
PROC: 5A09357 Assistance with Respiratory Ventilation, Less than 24 Consecutive Hours, Continuous Positive Airway Pressure (ICD-10-PCS; 2018-12-06)
DX: J69.0 Pneumonitis due to inhalation of food and vomit (principal); I50.23 Acute on chronic systolic (congestive) heart failure; J96.21 Acute and chronic respiratory failure with hypoxia; I13.0 Hypertensive heart and chronic kidney disease with heart failure and stage 1 through stage 4 chronic kidney disease, or unspecified chronic kidney disease; N17.9 Acute kidney failure, unspecified; J98.11 Atelectasis; E46 Unspecified protein-calorie malnutrition; E87.2 Acidosis; D68.59 Other primary thrombophilia; I47.2 Ventricular tachycardia; I42.9 Cardiomyopathy, unspecified; N18.3 Chronic kidney disease, stage 3 (moderate); Z66 Do not resuscitate; I48.91 Unspecified atrial fibrillation; E03.9 Hypothyroidism, unspecified; F32.9 Major depressive disorder, single episode, unspecified; G25.81 Restless legs syndrome; E11.22 Type 2 diabetes mellitus with diabetic chronic kidney disease; J44.9 Chronic obstructive pulmonary disease, unspecified; Z96.653 Presence of artificial knee joint, bilateral; I25.10 Atherosclerotic heart disease of native coronary artery without angina pectoris; I48.0 Paroxysmal atrial fibrillation; I95.9 Hypotension, unspecified; I27.20 Pulmonary hypertension, unspecified; M19.90 Unspecified osteoarthritis, unspecified site; G47.33 Obstructive sleep apnea (adult) (pediatric); Y95 Nosocomial condition; E78.5 Hyperlipidemia, unspecified; E87.6 Hypokalemia; E83.42 Hypomagnesemia; F41.9 Anxiety disorder, unspecified; E11.43 Type 2 diabetes mellitus with diabetic autonomic (poly)neuropathy; K21.9 Gastro-esophageal reflux disease without esophagitis; K44.9 Diaphragmatic hernia without obstruction or gangrene; I08.0 Rheumatic disorders of both mitral and aortic valves; E11.65 Type 2 diabetes mellitus with hyperglycemia; I49.3 Ventricular premature depolarization; I48.2 Chronic atrial fibrillation; D69.6 Thrombocytopenia, unspecified; Z86.718 Personal history of other venous thrombosis and embolism; Z86.711 Personal history of pulmonary embolism; Z90.710 Acquired absence of both cervix and uterus; Z90.49 Acquired absence of other specified parts of digestive tract; Z68.29 Body mass index [BMI] 29.0-29.9, adult; Z98.42 Cataract extraction status, left eye; Z98.41 Cataract extraction status, right eye; Z99.81 Dependence on supplemental oxygen; Z86.74 Personal history of sudden cardiac arrest; Z79.01 Long term (current) use of anticoagulants; Z22.322 Carrier or suspected carrier of Methicillin resistant Staphylococcus aureus; Z79.51 Long term (current) use of inhaled steroids; Z79.899 Other long term (current) drug therapy; Z88.0 Allergy status to penicillin; Z88.2 Allergy status to sulfonamides; Z88.1 Allergy status to other antibiotic agents; Z91.041 Radiographic dye allergy status; Z82.5 Family history of asthma and other chronic lower respiratory diseases
CPT/HCPCS: 10081